=== PATIENT | female | born 1955 | race Caucasian/White ===

== ENCOUNTER 2020-03-07 09:47 | Outpatient (CLI) | payer OTHER, SELFPAY ==
--- NOTE | ~2020-03-07 | US_ITS ---
EXAMINATION: US right upper quadrant DATE: 03/07/2020 10:32 INDICATION: Jaundice. TECHNIQUE: Multiple grayscale and Doppler ultrasound images of the abdomen were obtained. COMPARISON: None FINDINGS: The pancreatic head and body are normal in appearance. The pancreatic tail is not visualized. Liver has normal contour, with a smooth surface. There is increased parenchymal echogenicity and coarsened echotexture consistent with diffuse hepatic steatosis. No liver lesion identified. No intrahepatic b iliary duct dilation suspected. Portal venous flow was seen in the hepatopetal, normal direction and has normal Doppler waveform. There is minimal wall thickening of the gallbladder which is partially d ecompressed. Small amount of dependently layering hypoechoic sludge in the gallbladder without discre te shadowing cholelithiasis. The common bile duct measures 3 mm diameter which is normal. Sonographic Ruiz sign was reported as negative by the allocations clerk.Visualized proximal inferior vena cava is no rmal. IMPRESSION: 1. Gallbladder sludge without shadowing cholelithiasis or sonographic Ruiz's to suggest acute shahbaz cystitis. The mild gallbladder wall thickening is due at least in part to the partially decompressed state although differential would include chronic cholecystitis or edema related to heart disease, li oseas disease or other generalized edema forming states. 2. Diffuse hepatic steatosis. Reviewed, dictated and finalized at location A. IMPRESSION: 1. Gallbladder sludge without shadowing cholelithiasis or sonographic Ruiz's to suggest acute cholecystitis. The mild gallbladder wall thickening is due at least in part to the partially decompressed state although differential would i nclude chronic cholecystitis or edema related to heart disease, liver disease o r other generalized edema forming states. 2. Diffuse hepatic steatosis.
[2020-03-07 12:59] LABS: Alanine Aminotransferase 50 U/L (4-35); Albumin Level 3.5 g/dL (3.5-5.1); Alkaline Phosphatase 444 U/L (38-126); Aspartate Amino Transferase 255 U/L (14-36); Bilirubin Direct 5.2 mg/dL (0-0.3); Bilirubin,Total 11.9 mg/dL (0.2-1.3)
[2020-03-07 13:22] LABS: Alanine Aminotransferase 49 U/L (4-35); Albumin Level 3.5 g/dL (3.5-5.1); Alkaline Phosphatase 444 U/L (38-126); Aspartate Amino Transferase 248 U/L (14-36); Bilirubin Direct 5.3 mg/dL (0-0.3); Bilirubin,Total 11.9 mg/dL (0.2-1.3)
[2020-03-07 13:56] LABS: Hepatitis B Surface Antigen Negative (Negative)
[2020-03-07 14:02] LABS: HAV RESULT Negative (Negative); Hepatitis B Core IgM Result Negative (Negative)
[2020-03-07 14:13] LABS: Hepatitis C Virus Antibody Negative (Negative)
[2020-03-08 20:32] LABS: GGT 839 U/L (3-65)
== END 2020-03-07 09:48 | disposition home or self-care (01) ==
PROVIDERS: PCP Family Medicine; Visit Provider Physician Assistant
DX: R74.8 Abnormal levels of other serum enzymes (principal); K76.0 Fatty (change of) liver, not elsewhere classified; R17 Unspecified jaundice
CPT/HCPCS: 36415; 76705; 80074; 80076; 82728; 82977

== ENCOUNTER 2020-03-13 08:37 | Inpatient (IN) | payer OTHER, SELFPAY ==
[2020-03-13] VITALS (13 sets, daily range): BP systolic 110–123; BP diastolic 52–75; PULSE 81–103; RESP 16–22; TEMP 36.1–37.2; O2SAT 91–100; BMI 22.9
--- NOTE | ~2020-03-13 | US_ITS ---
EXAMINATION: US venous doppler [facility] DATE: 03/14/2020 11:18 INDICATION: Bilateral lower limb swelling TECHNIQUE: Cantu scale images without and with compression and Doppler images of the bilateral lower e xtremity veins were obtained. COMPARISON: None FINDINGS: The right common femoral vein, profunda femoral vein, femoral vein, popliteal vein, peroneal trunk, p osterior tibial veins, and greater saphenous vein are patent. The left common femoral vein, profunda femoral vein, femoral vein, popliteal vein, peroneal trunk, po sterior tibial veins, and greater saphenous vein are patent. IMPRESSION: 1. Patent bilateral lower extremity veins. No evidence of deep venous thrombosis. Reviewed, dictated and finalized at location A. IMPRESSION: 1. Patent bilateral lower extremity veins. No evidence of deep venous thrombosi s.
--- NOTE | ~2020-03-13 | CT_ITS ---
EXAMINATION: CT abdomen pelvis w con DATE: 03/13/2020 09:45 INDICATION: Jaundice. Constipation. TECHNIQUE: Computed tomography (CT) of the abdomen and pelvis was performed with 100 mL Omnipaque 350 intravenous contrast. Automated exposure control and iterative reconstruction technique were employe d. The dose-length product was 310.39 mGy-cm. COMPARISON: Abdomen ultrasound 03/07/2020 FINDINGS: The visualized portions of the lung bases demonstrate minimal atelectasis. No pleural effus ion. The heart size is normal. No pericardial effusion. The liver is enlarged and demonstrates surfac e nodularity, consistent with cirrhosis. There is mild splenomegaly measuring 13.8 cm. Paraesophageal varices are noted. The gallbladder, pancreas, and right adrenal gland are normal. There is a 12 mm m ass in left adrenal gland measuring soft tissue attenuation. The kidneys are normal. There is diverti culosis of the colon without evidence of diverticulitis. There are no dilated loops of bowel. The apple endix is normal. There are no pathologically enlarged lymph nodes. There is a small volume of ascites . There is severe thoracic spondylosis and moderate lumbar spondylosis. IMPRESSION: 1. Cirrhosis of the liver with portal venous hypertension. 2. Small volume of ascites. 3. 12 mm left adrenal mass. In the absence of known malignancy, this finding is likely an adenoma. Reviewed, dictated and finalized at location A.
--- NOTE | 2020-03-13 08:53 | ED.GENADULT ---
HPI - General Adult General Chief complaint: Abdominal Pain Stated complaint: Jaundice Time Seen by Provider: 03/13/20 08:51 Source: patient Mode of arrival: ambulatory Limitations: no limitations History of Present Illness HPI narrative: Patient is a 64-year-old female who presents from gastroenterology office of Dr. Nehemiah Carolina for evaluation in the ER for jaundice and hyperbilirubinemia. Patient reports a 2-month history of worsening jaundice, constipation, patient has been unable to have a bowel movement and 5 days. She reports decreased oral intake due to lack of appetite. Patient reports mild, aching abdominal pain, mild distention. Patient denies itchy skin or rash. She denies nausea or vomiting. Patient reports general malaise without myalgias or fever. No cough, chest pain or shortness of breath. No unintended weight loss or fever, no night sweats. No history of cancer. Patient states she is a daily 4-5 drinks per nights over the past several years since the of her daughter. Patient states her alcohol intake is slightly increased of late, but there are nights that she does not drink anything. Patient denies history of alcohol withdrawal. No history of hepatitis. Pt with recent laboratory work up showing anemia, hyponatremia, transaminitis. Pt with RUQ US without evidence of obstructive process. Recent hepatitis panel negative. Related Data Home Medications Medication Instructions Recorded Confirmed alprazolam 0.25 mg tablet 0.25 mg PO TID 10/11/19 epinephrine 0.3 mg/0.3 mL 0.3 mg IM ONCE 10/11/19 injection, auto-injector lisinopril 10 mg tablet 10 mg PO DAILY 10/11/19 tramadol 50 mg tablet 50 mg PO Q8H PRN tablet 10/11/19 zolpidem 12.5 mg tablet,extended 12.5 mg PO ONCE 10/11/19 release,multiphase Allergies Allergy/AdvReac Type Severity Reaction Status Date / Time bee venom protein (honey bee) Allergy Anaphylactic Verified 03/13/20 08:55 [bees] Shock Review of Systems Review of Systems: Narrative: CONSTITUTIONAL: Denies fever, chills, or sweats. EYES: Denies visual changes, redness, or discharge. ENT: Denies rhinorrhea, congestion, sore throat, or otalgia. CARDIOVASCULAR: Denies chest pain, palpitations, or edema. RESPIRATORY: Denies cough or dyspnea. GASTROINTESTINAL: Reports abdominal pain, constipation GENITOURINARY: Denies dysuria or hematuria. SKIN: Denies rash or itching. MUSCULOSKELETAL: Denies back pain, joint pain, or myalgia. NEUROLOGIC: Denies headache, numbness, or weakness. [facility] Past Medical History Medical History Abdominal bloating Abdominal discomfort Alcoholic hepatitis Anemia Bowel habit changes Elevated bilirubin Elevated liver enzymes Hepatic steatosis Jaundice Macrocytic anemia Family History Family History Mother Patient's mother is Social History Social History Smoking status: Former smoker Smoking end date: 10/17/00 Alcohol intake: current Exam Narrative: Exam Narrative: GENERAL: Awake, alert, conversant, jaundiced HEAD: Normocephalic, atraumatic. EYES: PERRLA and EOMI. positive scleral icterus ENT: Nares clear, no rhinorrhea or epistaxis. Mucous membranes moist. NECK: Supple. CHEST: No respiratory distress, breathing even and non labored HEART: Regular rate, sinus rhythm ABDOMEN:Non distended, non tender on exam, no guarding, no rigidity EXTREMITIES: Normal range of motion. Pitting edema lower extremities bilaterally 2+ to the knees, no petechiae SKIN: Warm, dry, no rash. NEURO:No focal deficits. Alert and oriented x3. Ambulatory with a narrow base, steady gait. Course Vital Signs Vital signs: Vital Signs Temperature 36.9 C 03/13/20 08:37 Pulse Rate 100 03/13/20 08:37 Respiratory Rate 16 03/13/20 08:37 Blood Pressure 123/75 05
[2020-03-13 09:23] LABS: Basophils Absolute Auto 0.1 K/mm3 (0.0-0.1); Basophils Percent Auto 0.3 % (0.2-1.2); Eosinophils Absolute Auto 0.1 K/mm3 (0-0.3); Eosinophils Percent Auto 0.3 % (0-4.4); Hematocrit 25.9 % (37.0-47.0); Hemoglobin 9.3 g/dL (12.0-15.0); Immature Granulocyte Absolute 0.11 K/mm3 (0.00-0.031); Immature Granulocyte Percent A 0.8 % (0-0.5); Immature Platelet Fraction Pct 18.5 % (0.9-11.2); Lymphocytes Absolute Auto 0.86 K/mm3 (0.9-3.2); Mean Corpuscular HGB Conc 35.9 g/dl (32-36); Mean Corpuscular Hemoglobin 35.9 pg (26-34); Mean Platelet Volume 13.3 fl (7.4-10.4); Monocytes Absolute Auto 0.6 K/mm3 (0.1-0.6); Neutrophils Absolute Auto 12.7 K/mm3 (1.3-6.7); Neutrophils Percent Auto 88.6 % (45.5-73.1); Platelet Count Result 221 k/mm3 (150-375); Red Blood Count 2.59 M/mm3 (4.2-5.4); Red Cell Distribution Width 17.5 % (11.5-14.5); White Blood Count 14.4 K/mm3 (4.5-10.0)
[2020-03-13 09:28] LABS: Add Urine Microscopic? YES; Appearance Urine Clear (Clear); Bacteria Urine Trace /hpf; Bilirubin Urine 2+ (Negative); Blood Urine 1+ (Negative); Color Urine Amber (Yellow); Glucose Urine UA Negative (Negative); Hyaline Casts Urine 20-29 /lpf; Ketones Urine Trace mg/dL (Negative); Leukocyte Esterase Ur Trace LEU/UL (Negative); Mucus Urine Rare /lpf; Nitrate Urine Negative (Negative); Protein Urine Negative (Negative); RBC Urine 0-2 /hpf (0-2); Specific Grav Ur 1.012 (1.001-1.035); Squamous Epithelial Cell Urine Many /hpf (Few); Transitional Epi Cells Urine Rare /hpf (None Seen)
[2020-03-13 09:32] LABS: Ammonia 34 umol/L (9-30)
[2020-03-13 09:33] LABS: INR 1.6; Prothrombin Time 18.3 Seconds (11.1-14.7)
[2020-03-13 09:34] LABS: Partial Thromboplastin Time 39.1 SECONDS (22.3-36.8)
[2020-03-13 09:39] LABS: Alanine Aminotransferase 51 U/L (4-35); Albumin Level 3.5 g/dL (3.5-5.1); Alkaline Phosphatase 368 U/L (38-126); Aspartate Amino Transferase 190 U/L (14-36); Bilirubin,Total 14.5 mg/dL (0.2-1.3); Blood Urea Nitrogen 8 mg/dL (7-17); Carbon Dioxide 35 mmol/L (22-30); Chloride 68 mmol/L (98-107); Estimated CRCL calculation 115 ml/min; Estimated Glomerular Filt Rate > 60; Glucose 86 mg/dL (65-105); Lipase 212 U/L (23-300); Potassium 2.2 mmol/L (3.4-5.0); Sodium 118 mmol/L (137-145)
[2020-03-13 09:42] LABS: Estimated CRCL calculation 95 ml/min; Estimated Glomerular Filt Rate > 60
[2020-03-13] MEDS: SODIUM CHLORIDE 0.9% IV 1,000 ML 999 ML IV CONT (10:00)
[2020-03-13] MEDS: POTASSIUM CHLORIDE 20 MEQ PACKET (FOR LIQUID) 40 MEQ PO (10:57)
--- NOTE | 2020-03-13 12:08 | PC.NURSE ---
This patient, Crystal Mckinney, was admitted to IMU Room 206-01. Patient/family oriented to hospital policies and general routines including ID bracelet, bed and alarms, visiting hours, pain management, procedures, bathroom and other care routines, personal items, smoking policy, room service/diet, and visiting hours. Valuables list has been completed. Information on how to activate the Rapid Response Team has been discussed. Patient/Family are encouraged to report perceived risks to care and to ask questions if they do not understand what they are told or what they should do.
[2020-03-13] MEDS: SODIUM CHLORIDE 0.9% IV 1,000 ML 125 ML IV CONT (12:22)
[2020-03-13 16:18] LABS: Blood Urea Nitrogen 6 mg/dL (7-17); Calcium 6.8 mg/dL (8.4-10.2); Carbon Dioxide 37 mmol/L (22-30); Chloride 75 mmol/L (98-107); Estimated CRCL calculation 152 ml/min; Estimated Glomerular Filt Rate > 60; Glucose 96 mg/dL (65-105); Magnesium 1.2 mg/dL (1.6-2.3); Potassium 2.8 mmol/L (3.4-5.0); Sodium 119 mmol/L (137-145)
[2020-03-13] MEDS: PANTOPRAZOLE SODIUM IV 40 MG VIAL IV PUSH (16:40)
[2020-03-13 16:56] LABS: Iron 60 ug/dL (37-170)
[2020-03-13 17:06] LABS: Percent Iron Saturation 28 % (20-50)
[2020-03-13] MEDS: POTASSIUM PHOS,M-BASIC-D-BASIC 20 MMOL in SODIUM CHLORIDE 0.9% IV 250 ML 64 MMOL IVPB (17:30)
[2020-03-13] MEDS: MAGNESIUM SULFATE 3GM/D5W100ML 3 GM/100 ML BAG IVPB (17:30)
[2020-03-13 17:36] LABS: Folic Acid 14.4 ng/mL (2.76->20); Vitamin B12 > 1000.0 pg/mL (239-931)
[2020-03-13 17:58] LABS: Creatinine Urine 14.8 mg/dL
[2020-03-13 18:03] LABS: Sodium Urine Random 8 meq/L
--- NOTE | 2020-03-13 18:45 | PM.IMHP ---
H&P: HPI History of Present Illness Chief complaint: Elevated transaminases and jaundice. Narrative: Crystal Mckinney is a 64-year-old female with history of alcohol abuse, cirrhosis, hepatic steatosis, and anemia who presented to the emergency department earlier today per Dr. Bush for further evaluation of elevated transaminases and jaundice. She has been drinking daily for nearly 7 years since the of her daughter at age 36 due to complications of diabetes and typically she will drinks 6 shots of Tequila a day followed by a chaser. She has never had signs or symptoms of alcohol withdrawal should she miss a day or 2 of drinking. In any event, she tells me she has not been feeling well since the beginning of the year with multiple symptoms to include poor appetite, abdominal bloating, and constipation. She was initially referred to Dr. Bush for evaluation of dark stools and constipation, however her endoscopy was canceled due to the COVID outbreak. More recently, she has developed jaundice and scleral icterus and she has not been able to hold down much in the way of liquids or food. Most days she drinks tea and chicken broth, and not much else. She was seen by Dr. Bush today in the office, and due to increasing enzymes she was referred to the emergency department for admission. She is currently receiving multiple electrolyte replacements due to profound hyponatremia, hypokalemia, hypomagnesemia, and hypophosphatemia. She has been taking furosemide at home, but is not using any other diuretics, prescribed or [id number]. She does admit to taking laxatives due to concerns for constipation, but she has not had much output with that. She denies overt abdominal pain but does report bloating and distention. She has lost some weight since the beginning of the year, but nothing significant. She has a mild dry cough but denies shortness of breath. She has not had fever, chills, or sweats. No sinus congestion, rhinorrhea, otalgia, or odynophagia. She denies chest pain. No hematemesis, melena, or hematochezia. She has not noticed a change in urine output, but does report having to urinate every 30 to 60 minutes since she has been hospitalized due to IV fluid rehydration. Last drink was yesterday afternoon. Review of Systems Review of Systems: Narrative: Twelve systems were reviewed with pertinent positives and negatives as per HPI. No headache. She denies confusion. She denies rash and pruritus. No chest pain or shortness of breath. She denies palpitations and racing heart. No dysuria or hematuria. She does not think she has had a good bowel movement for months, and reports passing a small hard stool bout 5 days ago. She frequently has pedal edema at the end of her work shifts, but notes that it has been constant for the past 1 week. It is not unusual for her right foot to be more swollen when compared to the left due to an ankle fracture at the age of 23. She has no history of venous thromboembolism. Except as documented, all other systems were reviewed and are negative. [facility] Past Medical History Medical History (Updated 03/13/20 @ 15:54 by Nayely Evans PA-C) Alcohol abuse Alcoholic hepatitis Anxiety and depression Chronic anemia Essential hypertension Gastroesophageal reflux Hepatic steatosis Surgical History Surgical History (Updated 03/13/20 @ 21:36 by Nayely Evans PA-C) History of ankle surgery Repair of right ankle fracture with subsequent hardware removal. History of hysterectomy History of tubal ligation Family History Family History Mother Patient's mother is Social History Social History (Updated 03/13/20 @ 21:38 by Nayely Evans PA-C) Social History: The patient lives in [place] with her . They have 2 children, but her daughter from complications of diabetes at age 36. She s
[2020-03-13 19:10] LABS: Magnesium 2.2 mg/dL (1.6-2.3)
[2020-03-13 19:16] LABS: Sodium 117 mmol/L (137-145)
[2020-03-13 22:13] LABS: Sodium 118 mmol/L (137-145)
[2020-03-13] MEDS: SODIUM CHLORIDE 0.9% IV 1,000 ML 100 ML IV CONT (23:03)
[2020-03-13] MEDS: THIAMINE HCL 200 MG/2 ML VIAL 100 MG IV PUSH (23:37)
[2020-03-14] VITALS (12 sets, daily range): BP systolic 106–118; BP diastolic 46–57; PULSE 77–96; RESP 12–18; TEMP 36.1–37.1; O2SAT 92–97
[2020-03-14 01:19] LABS: Phosphorus 1.6 mg/dL (2.5-4.5); Potassium 2.4 mmol/L (3.4-5.0); Sodium 120 mmol/L (137-145)
[2020-03-14] MEDS: POTASSIUM CHLORIDE 20 MEQ TABLET 80 MEQ PO (02:07)
[2020-03-14] MEDS: POTASSIUM PHOS,M-BASIC-D-BASIC 20 MMOL in SODIUM CHLORIDE 0.9% IV 250 ML 62.5 MMOL IVPB (02:07)
[2020-03-14 04:00] LABS: Hematocrit 23.5 % (37.0-47.0); Hemoglobin 8.1 g/dL (12.0-15.0); Mean Corpuscular HGB Conc 34.5 g/dl (32-36); Mean Corpuscular Hemoglobin 35.7 pg (26-34); Mean Corpuscular Volume 103.5 fl (80-100); Mean Platelet Volume 12.7 fl (7.4-10.4); Platelet Count Result 156 k/mm3 (150-375); Red Blood Count 2.27 M/mm3 (4.2-5.4); White Blood Count 9.2 K/mm3 (4.5-10.0)
[2020-03-14 04:14] LABS: Alanine Aminotransferase 44 U/L (4-35); Albumin Level 2.9 g/dL (3.5-5.1); Alkaline Phosphatase 297 U/L (38-126); Aspartate Amino Transferase 179 U/L (14-36); Bilirubin,Total 12.6 mg/dL (0.2-1.3); Blood Urea Nitrogen 2 mg/dL (7-17); Calcium 6.9 mg/dL (8.4-10.2); Carbon Dioxide 35 mmol/L (22-30); Chloride 80 mmol/L (98-107); Estimated CRCL calculation 152 ml/min; Estimated Glomerular Filt Rate > 60; Glucose 96 mg/dL (65-105); INR 1.7; Magnesium 2.1 mg/dL (1.6-2.3); Phosphorus 1.5 mg/dL (2.5-4.5); Prothrombin Time 19.6 Seconds (11.1-14.7); Sodium 122 mmol/L (137-145)
[2020-03-14 04:15] LABS: Partial Thromboplastin Time 43.5 SECONDS (22.3-36.8)
[2020-03-14 07:17] LABS: Sodium 124 mmol/L (137-145)
[2020-03-14 07:20] LABS: Phosphorus 2.3 mg/dL (2.5-4.5); Potassium 3.6 mmol/L (3.4-5.0)
[2020-03-14] MEDS: SODIUM CHLORIDE 0.9% IV 1,000 ML 100 ML IV CONT ×2 (09:34→19:58)
[2020-03-14] MEDS: THIAMINE HCL 100 MG TABLET PO (09:35)
[2020-03-14] MEDS: FOLIC ACID 1 MG TABLET PO (09:35)
[2020-03-14] MEDS: PANTOPRAZOLE SOD SESQUIHYDRATE 20 MG TAB PO (09:35)
[2020-03-14] MEDS: THERAPEUTIC MULTIVITAMINS/MINERALS TAB (*BKC) 1 TABLET PO (09:35)
[2020-03-14 10:39] LABS: Sodium 124 mmol/L (137-145)
[2020-03-14 13:27] LABS: Sodium 124 mmol/L (137-145)
--- NOTE | 2020-03-14 14:02 | PM.IMPN ---
Progress Note: A&P Assessment and Plan (1) Acute hyponatremia: Code(s): E87.1 - Hypo-osmolality and hyponatremia Status: Acute Assessment and Plan: Likely multifactorial in etiology to include poor oral intake, potomania (due to alcohol abuse and tea and toast diet), and liver disease. At presentation, sodium was 118. It has increased to 124 and remained stable. FeNa is 0.14%, suggesting pre-renal etiology. Continue IV normal saline Continue to monitor sodium levels q.3 hours to ensure it is correcting at an appropriate rate. Sodium has increased by 6 points in 24 hours and appears to be remaining stable (2) Acute hypokalemia: Code(s): E87.6 - Hypokalemia Status: Acute Assessment and Plan: Potassium critically low at presentation at 2.2. Today, K is stable at 3.6. Potassium will be monitored and replaced as needed. (3) Hypophosphatemia: Code(s): E83.39 - Other disorders of phosphorus metabolism Status: Acute Assessment and Plan: Phosphate is 2.3 today. Administer 1 time dose of potassium phosphate Continue to monitor levels (4) Alcoholic hepatitis: Qualifiers: Ascites presence: without ascites Qualified Code(s): K70.10 - Alcoholic hepatitis without ascites Code(s): K70.10 - Alcoholic hepatitis without ascites Status: Acute Assessment and Plan: She drinks alcohol daily and has for years. Liver enzymes are elevated with AST>ALT 4:1. She has recently established with gastroenterology. Continue supportive care. Cessation of alcohol use will be pertinent Continue thiamine supplementation (5) Chronic anemia: Code(s): D64.9 - Anemia, unspecified Status: Acute Assessment and Plan: Iron studies, B12, and folate all within normal limits. This appears to be chronic based on review of prior labs. Today, hemoglobin is 8.1 and hematocrit is 23.5. Continue to monitor H&H and transfuse as needed IFOB has been ordered but uncollected as patient has not had a bowel movement. (6) Cirrhosis: Code(s): K74.60 - Unspecified cirrhosis of liver Status: Acute Assessment and Plan: Evident on CT taken 03/13/2020 with portal hypertension and paraesophageal varices noted. Presumably secondary to alcohol abuse. Her coagulation panel is prolonged, platelets are within normal limits, total protein and albumin are low. Liver enzymes are elevated with AST>ALT 4:1. She is edematous on exam. Dr. Bush has been consulted and input is appreciated. Plan to diurese once IV fluids can be discontinued (7) Jaundice: Code(s): R17 - Unspecified jaundice Status: Acute Assessment and Plan: She is jaundiced and has scleral icterus. Recent RUQ performed as an outpatient showed gallbladder sludge and hepatic steatosis. Bilirubin is elevated at 12.6. Hopefully this will improve with cessation of alcohol and supportive care. (8) Alcohol abuse: Code(s): F10.10 - Alcohol abuse, uncomplicated Status: Acute Assessment and Plan: She drinks about 6 shots of tequila per day and has done so for years. Abstaining from alcohol is imperative and was discussed. No evidence of alcohol withdrawal symptoms. Continue thiamine and folic acid supplementation. Continue CIWA protocol. Additional Plan Plan to downgrade from IMU to medical floor as electrolytes have stabilized. Subjective Date/time seen: 03/14/20 14:02 Interval history: Date of service: 03/14/2020 Ms. Mckinney reports she is feeling very tired today. She is on the phone during my visit and is distracted and does not wish to talk or answer questions. She denies shortness of breath or chest pain. She denies abdominal pain, nausea, vomiting, or diarrhea. She does not have any other concerns at this time. Review of Systems Review of Systems: Narrative: A 12 point review of syst
[2020-03-14 16:23] LABS: Sodium 124 mmol/L (137-145)
[2020-03-14] MEDS: POTASSIUM PHOS/SODIUM PHOS 250 MG TABLET PO (17:30)
--- NOTE | 2020-03-14 18:16 | PC.NURSE ---
This patient, Crystal Mckinney, was received from IMU on 03/14/20 at 1800. Personal belongings list checked and signed. Patient/family oriented to unit policies and routines
--- NOTE | 2020-03-14 18:17 | PC.NURSE ---
This patient, Crystal Mckinney, was transferred to [[id number]] on 03/14/20 at 1810. Personal belongings sent with patient. Belongings list checked and signed with receiving [ ]. Report given to [IRIS Hope @ [phone]]. Appropriate documentation sent with patient. Pt transferred viz wheelchair
--- NOTE | 2020-03-14 18:51 | WPDGICN ---
Assessment and Plan Assessment and plan (1) Alcoholic hepatitis: Qualifiers: Ascites presence: without ascites Qualified Code(s): K70.10 - Alcoholic hepatitis without ascites Code(s): K70.10 - Alcoholic hepatitis without ascites Status: Acute Assessment and Plan: she has cirrhosis and here with alcoholic hepatitis continue with supportive care, on thiamine/mvi, nutritional support Maddrey score 44, will start trental for now but hold if she does not tolerate she is also high risk of refeeding syndrome- monitor lytes (phos, k, mag) and replete eventually she will benefit from a liver transplant evaluation if she can be abstinent (2) Macrocytic anemia: Code(s): D53.9 - Nutritional anemia, unspecified Status: Acute Assessment and Plan: multifactorial, probably from alcohol abuse with cirrhosis eventually will need egd to assess for EV and portal hypertension and colonoscopy- most likely as outpatient (3) Acute hyponatremia: Code(s): E87.1 - Hypo-osmolality and hyponatremia Status: Acute Assessment and Plan: monitor (4) Acute hypokalemia: Code(s): E87.6 - Hypokalemia Status: Acute Assessment and Plan: repleted (5) Cirrhosis: Qualifiers: Hepatic cirrhosis type: alcoholic cirrhosis Ascites presence: unspecified Qualified Code(s): K70.30 - Alcoholic cirrhosis of liver without ascites Code(s): K74.60 - Unspecified cirrhosis of liver Status: Acute Assessment and Plan: most likely alcohol, hepatitis panel negative will check for other chornic liver conditions new diagnosis (6) Hypophosphatemia: Code(s): E83.39 - Other disorders of phosphorus metabolism Status: Acute Assessment and Plan: monitor and replete, risk for refeeding syndrome (7) Bowel habit changes: Code(s): R19.4 - Change in bowel habit Status: Acute Assessment and Plan: will give lactulose, eventually will need colonoscopy as outpatient when acute issues improve/hepatitis improve CT a/p reviewed, no colon mass (8) Abdominal bloating: Code(s): R14.0 - Abdominal distension (gaseous) Status: Acute (9) Alcohol abuse: Code(s): F10.10 - Alcohol abuse, uncomplicated Status: Acute Assessment and Plan: thiamine, nutrition support [facility] GI Consult Note Consult date/time: 05/29/20 18:51 Reason for consult: cirrhosis, jaundice HPI: Crystal Mckinney is a 64 year old female who I met yesterday for the first time in my office after she was referred to me with icteric sclerae and dark urine for almost 2 weeks but she has been feeling sick since November when first noted change in bowel pattern with more difficulty having stools, she wanted to get a colonoscopy but unable to because COVID19 situation. Recent blood work by her PCP showed abnormal liver enzymes with jaundice, macrocytic anemia, hyponatremia and hypokalemia. When I talked to her yesterday she says taht has not been eating much for last few days, lack of appetite, fatigue and bloated. I decided to send her to ER, CT scan revealed cirrhosis, she had worsening hyponatremia, hypokalemia and was admitted to the hospital. She still has not had a good bowel movement. She had lunch today. She admits to drink 5-6 shots of tequila daily for last few years, never diagnosed with liver disease before. Review of Systems Constitutional: Constitutional: Reports fatigue, Denies headache(s) and Reports lethargy Eyes: Eyes: Denies blurry vision ENT: Reports Normal hearing present, Denies headache(s) and Denies neck pain Cardiovascular: Cardiovascular: Denies chest pain and Denies dyspnea Respiratory: Respiratory: Denies dyspnea Gastrointestinal: Gastrointestinal: Reports bloating, Reports constipation and Reports nausea Genitourinary: Genitourinary: Denies dysuria Musculoskeletal: Musculoskeletal: Denies neck pain Integumentary/Breas
[2020-03-14 23:11] LABS: Potassium 3.1 mmol/L (3.4-5.0); Sodium 124 mmol/L (137-145)
[2020-03-15] MEDS: POTASSIUM CHLORIDE 20 MEQ TABLET 40 MEQ PO (02:20)
[2020-03-15 06:00] VITALS: BP 114/64; PULSE 81; RESP 16; TEMP 36.8; O2SAT 96
[2020-03-15] MEDS: SODIUM CHLORIDE 0.9% IV 1,000 ML 100 ML IV CONT (06:35)
[2020-03-15 07:47] LABS: Basophils Absolute Auto 0.1 K/mm3 (0.0-0.1); Basophils Percent Auto 0.6 % (0.2-1.2); Eosinophils Absolute Auto 0.1 K/mm3 (0-0.3); Eosinophils Percent Auto 0.9 % (0-4.4); Hematocrit 21.8 % (37.0-47.0); Hemoglobin 7.4 g/dL (12.0-15.0); Immature Granulocyte Absolute 0.08 K/mm3 (0.00-0.031); Immature Granulocyte Percent A 0.9 % (0-0.5); Immature Platelet Fraction Pct 12.5 % (0.9-11.2); Lymphocytes Absolute Auto 0.74 K/mm3 (0.9-3.2); Lymphocytes Percent Auto 8.5 % (18.3-44.2); Mean Corpuscular HGB Conc 33.9 g/dl (32-36); Mean Corpuscular Hemoglobin 36.3 pg (26-34); Mean Corpuscular Volume 106.9 fl (80-100); Mean Platelet Volume 13.2 fl (7.4-10.4); Monocytes Absolute Auto 0.4 K/mm3 (0.1-0.6); Monocytes Percent Auto 4.7 % (2.6-8.5); Neutrophils Absolute Auto 7.3 K/mm3 (1.3-6.7); Neutrophils Percent Auto 84.4 % (45.5-73.1); Platelet Count Result 158 k/mm3 (150-375); Red Blood Count 2.04 M/mm3 (4.2-5.4); Red Cell Distribution Width 18.9 % (11.5-14.5); White Blood Count 8.7 K/mm3 (4.5-10.0)
[2020-03-15 07:48] LABS: INR 1.8; Prothrombin Time 20.8 Seconds (11.1-14.7)
[2020-03-15 07:50] LABS: Magnesium 1.9 mg/dL (1.6-2.3)
[2020-03-15 08:28] LABS: Alanine Aminotransferase 44 U/L (4-35); Albumin Level 2.5 g/dL (3.5-5.1); Alkaline Phosphatase 273 U/L (38-126); Aspartate Amino Transferase 180 U/L (14-36); Bilirubin,Total 12.4 mg/dL (0.2-1.3); Blood Urea Nitrogen 3 mg/dL (7-17); Calcium 7.1 mg/dL (8.4-10.2); Carbon Dioxide 29 mmol/L (22-30); Chloride 95 mmol/L (98-107); Estimated CRCL calculation 152 ml/min; Estimated Glomerular Filt Rate > 60; Glucose 101 mg/dL (65-105); Phosphorus 1.3 mg/dL (2.5-4.5); Potassium 3.3 mmol/L (3.4-5.0); Sodium 129 mmol/L (137-145)
[2020-03-15] MEDS: PANTOPRAZOLE SOD SESQUIHYDRATE 20 MG TAB PO (09:22)
[2020-03-15] MEDS: LACTULOSE 20 GM/30 ML UDC PO (09:22)
[2020-03-15] MEDS: THERAPEUTIC MULTIVITAMINS/MINERALS TAB (*BKC) 1 TABLET PO (09:22)
[2020-03-15] MEDS: PENTOXIFYLLINE 400 MG TABCR PO ×3 (09:22→18:04)
[2020-03-15] MEDS: FOLIC ACID 1 MG TABLET PO (09:22)
[2020-03-15] MEDS: THIAMINE HCL 100 MG TABLET PO (09:22)
--- NOTE | 2020-03-15 09:54 | WPDGIPROGNO ---
Progress Note: A&P Additional Plan GI Jose Martin vladislav Cerna 03-15-2020 No abdominal pain, nausea, vomiting. Only small BM today. [place] po vss soft/NT No asterixis Hct 22, MCV 107. INR 1.8. Tbili 12, A/P 273, ast 180, alt 44. B12 > 1,000. Folate 14. Ferritin 216. Fe 60, tibc 214, %sat 28 A/P A. Alcoholic cirrhosis without ascites: - Lab evaluation ordered - Will need EtoH cessation - Will need EGD to evaluate for varices - Fat soluble vitamin levels and Bone densitometry as OP - No evidence of encephalopathy B. Alcoholic hepatitis with abnormal LFT's: - Observe for S/sx of withdrawal - Consider EtoH rehab - Continue Trental - Observe C. Macrocytosis: - B12/folate normal - Secondary to EtOH D. Chronic blood loss anemia: - No active bleed - Follow H+H; transfuse prn - PPI - Endoscopy per Dr. Cerna - CAre with aspirin, NSAIDS and anticoagulants E. Constipation: bowel regimen Thanks, [facility] [phone] Subjective Date/time seen: 03/15/20 09:54 Objective Data Vital Signs Vital Signs: Vital Signs - 24 hr 03/14/20 10:00 03/14/20 12:00 03/14/20 16:00 Temperature 36.8 C 36.1 C L Pulse Rate 86 89 95 Pulse Rate [Bilateral Pedal (Dorsalis Pedis) Palpation] 86 86 Respiratory Rate 12 12 Blood Pressure 116/46 L 118/49 L Pulse Oximetry 97 95 03/14/20 18:00 03/14/20 22:00 03/15/20 06:00 Temperature 36.7 C 37.1 C 36.8 C Pulse Rate 96 86 81 Pulse Rate [Bilateral Pedal (Dorsalis Pedis) Palpation] Respiratory Rate 18 16 16 Blood Pressure 116/57 L 106/52 L 114/64 Pulse Oximetry 92 97 96 Intake/Output Intake/Output: Intake & Output 03/12/20 03/13/20 03/14/20 03/15/20 23:59 23:59 23:59 23:59 Intake Total 3244.6667 3730 1300 Output Total 300 1800 600 Balance 2944.6667 1930 700 Meds/Results Medications: Active Medications Generic Name Dose Route Start Last Admin Trade Name Freq PRN Reason Stop Dose Admin Alprazolam 0.25 mg 03/13/20 21:49 Xanax PO TID PRN Anxiety Folic Acid 1 mg 03/14/20 09:00 03/15/20 09:22 Folic Acid PO 1 mg DAILY MICAELA Administration Potassium Phosphate 20 mmol/ 256.6667 mls @ 62.5 mls/hr 03/15/20 09:19 Sodium Chloride IVPB 03/15/20 13:25 ONCE ONE Lactulose 20 gm 03/15/20 09:00 03/15/20 09:22 Lactulose PO 20 gm QAM [facility] Administration Lorazepam 1 mg 03/13/20 21:48 Ativan Inj IV PUSH Q2H PRN Alcohol withdrawal & CIWA > 8 Multivitamins/Calcium 1 tablet 03/14/20 09:00 03/15/20 09:22 Therapeutic Multivitamins/Minerals PO 1 tablet QAM [facility] Administration Ondansetron HCl 4 mg 03/13/20 10:32 Zofran Inj IV PUSH Q4H PRN Nausea Pantoprazole Sodium 20 mg 03/14/20 09:00 03/15/20 09:22 Protonix PO 20 mg QAM [facility] Administration Pentoxifylline 400 mg 03/15/20 08:00 03/15/20 09:22 Trental PO 400 mg TIDWM [facility] Administration Thiamine HCl 100 mg 03/14/20 09:00 03/15/20 09:22 Vitamin B-1 PO 100 mg QAM [facility] Administration Tramadol HCl 25 mg 03/13/20 16:00 03/13/20 16:49 Ultram PO 25 mg Q8H PRN Administration Pain Rated 4-6 Radiology Results: ITS Impressions Abdomen/Pelvis CT 03/13/20 09:49 IMPRESSION: 1. Cirrhosis of the liver with portal venous hypertension. 2. Small volume of ascites. 3. 12 mm left adrenal mass. In the absence of known malignancy, this finding is likely an adenoma. Venous Doppler Study 03/14/20 11:20 IMPRESSION: 1. Patent bilateral lower extremity veins. No evidence of deep venous thrombosis. Labs Labs: Laboratory Results - last 24 hr 03/14/20 03/14/20 03/14/20 10:10 13:12 16:09 WBC RBC Hgb Hct MCV MCH MCHC RDW Plt Count MPV Immature Gran % (Auto) Neut % (Auto) Lymph % (Auto) [place] % (Auto) Eos % (Auto) Baso % (Auto) Lymph # (Auto) [place] # (Auto) Eos # (Auto) Baso # (Auto) Abs Immat Gran (auto) Absolute Neuts (
[2020-03-15 10:00] VITALS: BP 140/67; PULSE 78; RESP 16; TEMP 36.7; O2SAT 98
[2020-03-15] MEDS: POTASSIUM PHOS,M-BASIC-D-BASIC 20 MMOL in SODIUM CHLORIDE 0.9% IV 250 ML 62.5 MMOL IVPB ×2 (10:14→18:05)
[2020-03-15 10:39] LABS: Sodium 127 mmol/L (137-145)
[2020-03-15] MEDS: BISACODYL 5 MG TABLET EC PO (13:06)
[2020-03-15 14:00] VITALS: BP 116/50; PULSE 97; RESP 18; TEMP 36.7; O2SAT 100
[2020-03-15 15:49] LABS: Potassium 3.3 mmol/L (3.4-5.0)
[2020-03-15 15:50] LABS: Sodium 127 mmol/L (137-145)
[2020-03-15 15:53] LABS: Phosphorus 1.7 mg/dL (2.5-4.5)
--- NOTE | 2020-03-15 16:50 | PM.IMPN ---
Progress Note: A&P Assessment and Plan (1) Acute hyponatremia: Code(s): E87.1 - Hypo-osmolality and hyponatremia Status: Acute Assessment and Plan: Likely multifactorial in etiology to include poor oral intake, potomania (due to alcohol abuse and tea and toast diet), and liver disease. FeNa is 0.14%, suggesting pre-renal etiology.At presentation, sodium was 118. Levels increased 6 points in 24 hours and 10 points in 48 hours. This morning, sodium was 129, and therefore fluids were discontinued to prevent rapid correction. Levels have remained stable at 127 on repeat. Discontinue IV normal saline. Plan to resume if levels begin to decline. Continue to monitor sodium levels Q6 hours to ensure it is correcting at an appropriate rate. (2) Acute hypokalemia: Code(s): E87.6 - Hypokalemia Status: Acute Assessment and Plan: Potassium critically low at presentation at 2.2. Today, K is mildly decreased at 3.3. Potassium will be monitored closely and replaced as needed. Continue potassium phosphate. (3) Hypophosphatemia: Code(s): E83.39 - Other disorders of phosphorus metabolism Status: Acute Assessment and Plan: Phosphorus was 1.3 this morning. Administer 20 mmol IV potassium phosphate. Levels increased to 1.7 upon repeat and therefore will administer an additional 20 mmol. Continue to monitor levels closely (4) Cirrhosis: Qualifiers: Ascites presence: unspecified Hepatic cirrhosis type: alcoholic cirrhosis Qualified Code(s): K70.30 - Alcoholic cirrhosis of liver without ascites Code(s): K74.60 - Unspecified cirrhosis of liver Status: Acute Assessment and Plan: Evident on CT taken 03/13/2020 with portal hypertension and paraesophageal varices noted. Presumably secondary to alcohol abuse. Her coagulation panel is prolonged, platelets are within normal limits, total protein and albumin are low. Liver enzymes are elevated with AST>ALT 4:1. She is edematous on exam. Gastroenterology has been consulted and input is appreciated. Lab workup is pending Begin Lasix PO 20 mg She will need outpatient EGD to assess for varices. She will also need to evaluate fat soluble vitamin levels and bone densitometry per GI recommendations. Cessation of alcohol use is imperative (5) Alcoholic hepatitis: Qualifiers: Ascites presence: without ascites Qualified Code(s): K70.10 - Alcoholic hepatitis without ascites Code(s): K70.10 - Alcoholic hepatitis without ascites Status: Acute Assessment and Plan: She drinks alcohol daily and has for years. Liver enzymes are elevated with AST>ALT 4:1. She has recently established with gastroenterology. There is no evidence of abdominal ascites or encephalopathy. Continue supportive care. Cessation of alcohol use will be pertinent Continue thiamine supplementation Gastroenterology has been consulted and lab evaluation is pending. (6) Chronic anemia: Code(s): D64.9 - Anemia, unspecified Status: Acute Assessment and Plan: Macrocytic. Iron studies, B12, and folate all within normal limits. This appears to be chronic based on review of prior labs. Today, hemoglobin is 7.4 and hematocrit is 21.8. Her vitals are stable and she is asymptomatic. Continue to monitor H&H closely and transfuse as needed with hemoglobin threshold <7.0 IFOB has been ordered but uncollected as patient has been uncooperative with stool collection. Continue PPI (7) Alcohol abuse: Code(s): F10.10 - Alcohol abuse, uncomplicated Status: Acute Assessment and Plan: She drinks about 6 shots of tequila per day and has done so for years. Abstaining from alcohol is imperative and was discussed. No evidence of alcohol withdrawal symptoms on exam. Continue thiamine and folic acid supplementation. Continue CIWA protocol. Patient states that she has never
[2020-03-15 22:00] VITALS: BP 110/47; PULSE 81; RESP 16; TEMP 36.8; O2SAT 97
[2020-03-15 22:31] LABS: Hematocrit 23.2 % (37.0-47.0); Hemoglobin 7.9 g/dL (12.0-15.0)
[2020-03-15 22:40] LABS: Sodium 127 mmol/L (137-145)
[2020-03-15 22:43] LABS: Phosphorus 2.6 mg/dL (2.5-4.5); Potassium 3.9 mmol/L (3.4-5.0)
[2020-03-16 06:39] VITALS: BP 103/54; PULSE 80; RESP 18; TEMP 36.8; O2SAT 100
[2020-03-16 06:41] LABS: Basophils Percent Auto 0.4 % (0.2-1.2); Eosinophils Absolute Auto 0.1 K/mm3 (0-0.3); Eosinophils Percent Auto 0.5 % (0-4.4); Hematocrit 23.8 % (37.0-47.0); Immature Granulocyte Absolute 0.12 K/mm3 (0.00-0.031); Immature Granulocyte Percent A 1.1 % (0-0.5); Lymphocytes Absolute Auto 0.92 K/mm3 (0.9-3.2); Lymphocytes Percent Auto 8.7 % (18.3-44.2); Mean Corpuscular HGB Conc 33.6 g/dl (32-36); Mean Corpuscular Hemoglobin 35.4 pg (26-34); Mean Corpuscular Volume 105.3 fl (80-100); Mean Platelet Volume 12.9 fl (7.4-10.4); Monocytes Absolute Auto 0.5 K/mm3 (0.1-0.6); Monocytes Percent Auto 4.7 % (2.6-8.5); Neutrophils Absolute Auto 8.9 K/mm3 (1.3-6.7); Neutrophils Percent Auto 84.6 % (45.5-73.1); Platelet Count Result 197 k/mm3 (150-375); Red Blood Count 2.26 M/mm3 (4.2-5.4); Red Cell Distribution Width 18.8 % (11.5-14.5); White Blood Count 10.5 K/mm3 (4.5-10.0)
[2020-03-16 06:48] LABS: INR 1.7; Prothrombin Time 19.7 Seconds (11.1-14.7)
[2020-03-16 06:55] LABS: Alanine Aminotransferase 46 U/L (4-35); Albumin Level 2.9 g/dL (3.5-5.1); Alkaline Phosphatase 287 U/L (38-126); Aspartate Amino Transferase 155 U/L (14-36); Bilirubin,Total 12.7 mg/dL (0.2-1.3); Blood Urea Nitrogen 5 mg/dL (7-17); Calcium 7.9 mg/dL (8.4-10.2); Carbon Dioxide 26 mmol/L (22-30); Chloride 97 mmol/L (98-107); Estimated CRCL calculation 152 ml/min; Estimated Glomerular Filt Rate > 60; Glucose 96 mg/dL (65-105); Phosphorus 2.1 mg/dL (2.5-4.5); Potassium 3.7 mmol/L (3.4-5.0); Sodium 131 mmol/L (137-145)
[2020-03-16] MEDS: FUROSEMIDE 20 MG TABLET PO (09:13)
[2020-03-16] MEDS: PENTOXIFYLLINE 400 MG TABCR PO (09:13)
[2020-03-16] MEDS: THIAMINE HCL 100 MG TABLET PO (09:13)
[2020-03-16] MEDS: THERAPEUTIC MULTIVITAMINS/MINERALS TAB (*BKC) 1 TABLET PO (09:13)
[2020-03-16] MEDS: PANTOPRAZOLE SOD SESQUIHYDRATE 20 MG TAB PO (09:13)
[2020-03-16] MEDS: FOLIC ACID 1 MG TABLET PO (09:13)
[2020-03-16] MEDS: POTASSIUM PHOS,M-BASIC-D-BASIC 20 MMOL in SODIUM CHLORIDE 0.9% IV 250 ML 62.5 MMOL IVPB (09:47)
--- NOTE | 2020-03-16 11:37 | PM.DS ---
DS: Admitting Diagnosis Admitting Diagnosis Admitting Diagnosis: Hypo-osmolality and hyponatremia DS: Discharge Diagnosis Discharge Diagnosis (1) Cirrhosis: Qualifiers: Ascites presence: unspecified Hepatic cirrhosis type: alcoholic cirrhosis Qualified Code(s): K70.30 - Alcoholic cirrhosis of liver without ascites Code(s): K74.60 - Unspecified cirrhosis of liver Status: Acute Assessment and Plan: Evident on CT taken 03/13/2020 with portal hypertension and paraesophageal varices noted. Presumably secondary to alcohol abuse. Liver enzymes were elevated with AST>ALT 4:1. Gastroenterology followed patient during stay. Lab work was pending at time of discharge and she will follow up with Dr. Cerna in 1-2 weeks to review. She will continue 20 mg PO Lasix daily. She will need outpatient EGD to assess for varices. She will also need to evaluate fat soluble vitamin levels and bone densitometry as an outpatient per GI recommendations. Cessation of alcohol use is imperative and patient is motivated to stop drinking. (2) Acute hyponatremia: Code(s): E87.1 - Hypo-osmolality and hyponatremia Status: Acute Assessment and Plan: Likely multifactorial in etiology secondary to poor oral intake, potomania (due to alcohol abuse and tea and toast diet), and liver disease. At presentation, sodium was 118, and was monitored closely to prevent rapid correction. Sodium levels increased at an appropriate rate and at time of discharge, sodium was 131. She will obtain repeat BMP in ~1 week. (3) Acute hypokalemia: Code(s): E87.6 - Hypokalemia Status: Acute Assessment and Plan: Potassium was low at presentation at 2.2. Levels increased with IV potassium replacement. At time of discharge, potassium was 3.7. She will obtain repeat BMP in ~1 week. (4) Hypophosphatemia: Code(s): E83.39 - Other disorders of phosphorus metabolism Status: Acute Assessment and Plan: Phosphorus levels were low, secondary to poor oral intake and alcohol abuse. Levels were repleted. Alcohol cessation and proper nutrition was discussed. (5) Alcoholic hepatitis: Qualifiers: Ascites presence: without ascites Qualified Code(s): K70.10 - Alcoholic hepatitis without ascites Code(s): K70.10 - Alcoholic hepatitis without ascites Status: Acute Assessment and Plan: Recent hepatitis panel was negative. She will follow up with Dr. Nehemiah as above. Continue trental, thiamine, and folic acid. (6) Chronic anemia: Code(s): D64.9 - Anemia, unspecified Status: Acute Assessment and Plan: Macrocytic. Iron studies, B12, and folate all within normal limits. This appears to be chronic based on review of prior labs. (7) Alcohol abuse: Code(s): F10.10 - Alcohol abuse, uncomplicated Status: Acute Assessment and Plan: She drinks approximately 6 shots of tequila per day and has done so for years. She did not display any evidence of alcohol withdrawal symptoms. [facility] protocol was in place during her stay. Abstaining from alcohol is imperative and was discussed. Patient stated that she has never been dependent on alcohol. She is motivated to stop drinking. Resources were offered but patient declined and stated that abstaining will not be a problem. She will continue thiamine and folic acid. (8) Jaundice: Code(s): R17 - Unspecified jaundice Status: Acute Assessment and Plan: She was jaundiced and had scleral icterus. Bilirubin was elevated. She will follow up with GI in 1-2 weeks. DS: Summary Hospital Course Reason for hospitalization: Jaundice Hospital Course: Date of admission: 03/13/2020 Date of discharge: 03/16/2020 Crystal Mckinney is a 64 year old female with a PMH significant for alcohol abuse, alcoholic hepatitis, hepatic steatosis, and anemia who presented to the emergency department on 03/13/2020
--- NOTE | 2020-03-16 12:06 | WPDGIPROGNO ---
Progress Note: A&P Additional Plan GI Jose Martin for Nehemiah 03-16-2020 No abdominal pain, nausea, vomiting. Informed patient's this am. [place] po vss soft/NT No asterixis Hct 22->24, MCV 107. INR 1.8. Tbili 13, A/P 273->286, ast 180->155, alt 44->46. B12-> 1,000. Folate 14. Ferritin 216. Fe 60, tibc 214, %sat 28 A/P A. Alcoholic cirrhosis without ascites: - Lab evaluation ordered - Will need EtoH cessation - Will need EGD to evaluate for varices - Fat soluble vitamin levels and Bone densitometry as OP - No evidence of encephalopathy B. Alcoholic hepatitis with abnormal LFT's: - No S/sx of withdrawal - Consider EtoH rehab - Continue Trental - Observe C. Macrocytosis: - B12/folate normal - Secondary to EtOH D. Chronic blood loss anemia: - No active bleed - Follow H+H; transfuse prn - PPI - Endoscopy per Dr. Cerna - Care with aspirin, NSAIDS and anticoagulants E. Constipation: bowel regimen No further recommendations. OK with me for discharge. F/u Dr. Cerna in 2-3 weeks. Thanks, [facility] [phone] Subjective Date/time seen: 03/16/20 12:06 Objective Data Vital Signs Vital Signs: Vital Signs - 24 hr 03/15/20 14:00 03/15/20 22:00 03/16/20 06:39 Temperature 36.7 C 36.8 C 36.8 C Pulse Rate 97 81 80 Respiratory Rate 18 16 18 Blood Pressure 116/50 L 110/47 L 103/54 L Pulse Oximetry 100 97 100 Intake/Output Intake/Output: Intake & Output 03/13/20 03/14/20 03/15/20 03/16/20 23:59 23:59 23:59 23:59 Intake Total 3248.6667 3730 2046 420 Output Total 300 1800 600 Balance 2944.6667 1930 1446 420 Meds/Results Medications: Active Medications Generic Name Dose Route Start Last Admin Trade Name Freq PRN Reason Stop Dose Admin Alprazolam 0.25 mg 03/13/20 21:49 Xanax PO TID PRN Anxiety Folic Acid 1 mg 03/14/20 09:00 03/16/20 09:13 Folic Acid PO 1 mg DAILY MICAELA Administration Furosemide 20 mg 03/16/20 09:00 03/16/20 09:13 Lasix Tablet PO 20 mg DAILY MICAELA Administration Potassium Phosphate 20 mmol/ 256.6667 mls @ 62.5 mls/hr 03/16/20 08:38 03/16/20 09:47 Sodium Chloride IVPB 03/16/20 12:44 62.5 mls/hr ONCE ONE Administration Lactulose 20 gm 03/15/20 09:00 03/15/20 09:22 Lactulose PO 20 gm QAM MICAELA Administration Lorazepam 1 mg 03/13/20 21:48 Ativan Inj IV PUSH Q2H PRN Alcohol withdrawal & CIWA > 8 Multivitamins/Calcium 1 tablet 03/14/20 09:00 03/16/20 09:13 Therapeutic Multivitamins/Minerals PO 1 tablet QAM [facility] Administration Ondansetron HCl 4 mg 03/13/20 10:32 Zofran Inj IV PUSH Q4H PRN Nausea Pantoprazole Sodium 20 mg 03/14/20 09:00 03/16/20 09:13 Protonix PO 20 mg QAM MICAELA Administration Pentoxifylline 400 mg 03/15/20 08:00 03/16/20 09:13 Trental PO 400 mg TIDWM [facility] Administration Thiamine HCl 100 mg 03/14/20 09:00 03/16/20 09:13 Vitamin B-1 PO 100 mg QAM [facility] Administration Tramadol HCl 25 mg 03/13/20 16:00 03/15/20 18:08 Ultram PO 25 mg Q8H PRN Administration Pain Rated 4-6 Radiology Results: ITS Impressions Abdomen/Pelvis CT 03/13/20 09:49 IMPRESSION: 1. Cirrhosis of the liver with portal venous hypertension. 2. Small volume of ascites. 3. 12 mm left adrenal mass. In the absence of known malignancy, this finding is likely an adenoma. Venous Doppler Study 03/14/20 11:20 IMPRESSION: 1. Patent bilateral lower extremity veins. No evidence of deep venous thrombosis. Labs Labs: Laboratory Results - last 24 hr 03/15/20 03/15/20 03/15/20 15:18 15:18 15:18 WBC RBC Hgb Hct MCV MCH MCHC RDW Plt Count MPV Immature Gran % (Auto) Neut % (Auto) Lymph % (Auto) [place] % (Auto) Eos % (Auto) Baso % (Auto) Lymph # (Auto) [place] # (Auto) Eos # (Auto) Baso # (Auto) Abs Immat Gran (auto) Absolute Neuts (auto) Absolute Nucleated
[2020-03-17 04:32] LABS: Osmolality, Urine 114 mOsm/kg (50-1200)
[2020-03-18 21:39] LABS: Ceruloplasmin 31 mg/dL (18-53)
[2020-03-19 12:01] LABS: Anti Nuclear Antibody Titer 1:40 (Negative)
[2020-03-19 21:50] LABS: Mitochondrial (M2) Ab (IgG) <=20.0 U (<=20.0)
== END 2020-03-16 13:10 | disposition home or self-care (01) | DRG 433 ==
LOC: ANHED 10:39 → ANH2MED 10:49 → ANHIMU 11:08 → ANH3MEDSUR 03-16 10:43 → ANHIMU 03-18 16:18
PROVIDERS: Internal Medicine; Internal Medicine Gastroenterology; Physician Assistant; Admitting Provider Family Medicine; Emergency Provider Emergency Medicine; PCP Family Medicine; Visit Provider Internal Medicine
DX: K70.31 Alcoholic cirrhosis of liver with ascites; E87.1 Hypo-osmolality and hyponatremia; K76.6 Portal hypertension; I85.10 Secondary esophageal varices without bleeding; E83.39 Other disorders of phosphorus metabolism; K70.11 Alcoholic hepatitis with ascites; K76.0 Fatty (change of) liver, not elsewhere classified; F10.10 Alcohol abuse, uncomplicated; E87.6 Hypokalemia; D53.9 Nutritional anemia, unspecified; K59.00 Constipation, unspecified; R14.0 Abdominal distension (gaseous); D35.02 Benign neoplasm of left adrenal gland; Z87.891 Personal history of nicotine dependence
CPT/HCPCS: 36415; 36600; 74177; 80048; 80053; 81001; 82103; 82140; 82248; 82390; 82570; 82607; 82728; 82746; 83520; 83540; 83550; 83690; 83735; 83930; 83935; 84100; 84132; 84295; 84300; 84443; 85014; 85018; 85025; 85027; 85055; 85610; 85730; 86038; 86039; 87086; 87088; 93970; 96361; 96365; 99285; A9270; C9113; J3411; J3475; J3480; J7030; J7050; Q9967

== ENCOUNTER 2020-03-25 11:56 | Outpatient (CLI) | payer OTHER, SELFPAY ==
[2020-03-25 13:44] LABS: Blood Urea Nitrogen 8 mg/dL (7-17); Calcium 7.4 mg/dL (8.4-10.2); Carbon Dioxide 29 mmol/L (22-30); Chloride 89 mmol/L (98-107); Estimated Glomerular Filt Rate > 60; Glucose 100 mg/dL (65-105); Potassium 2.6 mmol/L (3.4-5.0); Sodium 125 mmol/L (137-145)
== END 2020-03-25 11:57 | disposition home or self-care (01) ==
LOC: ANHLAB 11:58
PROVIDERS: PCP Family Medicine; Visit Provider Physician Assistant
DX: E87.6 Hypokalemia (principal); E87.1 Hypo-osmolality and hyponatremia
CPT/HCPCS: 36415; 80048

== ENCOUNTER 2020-03-28 07:09 | Outpatient (CLI) | payer OTHER, SELFPAY ==
--- NOTE | ~2020-03-28 | XR_ITS ---
XR chest 2V DATE: 03/28/2020 08:55 INDICATION: Cough. No fever. TECHNIQUE: PA and lateral views COMPARISON: None FINDINGS: Normal heart size. There is mild discoid atelectasis in the mid to lower lung zones bilater ally. No pulmonary consolidation, pleural effusion, adenopathy or pneumothorax is detected. No hilar or mediastinal enlargement. Osteopenia. IMPRESSION: Mild discoid atelectasis and/or scarring of the lungs; otherwise no active cardiopulmonar y disease Reviewed, dictated and finalized at location A. IMPRESSION: Mild discoid atelectasis and/or scarring of the lungs; otherwise no active cardiopulmonary disease
== END 2020-03-28 07:10 | disposition home or self-care (01) ==
LOC: ANHIMG 07:11
PROVIDERS: PCP Family Medicine; Visit Provider Family Medicine
DX: R05 Cough (principal); R91.8 Other nonspecific abnormal finding of lung field
CPT/HCPCS: 71046

== ENCOUNTER 2020-04-10 16:21 | Outpatient (CLI) | payer OTHER, SELFPAY ==
[2020-04-10 16:54] LABS: Basophils Absolute Auto 0.1 K/mm3 (0.0-0.1); Basophils Percent Auto 0.9 % (0.2-1.2); Eosinophils Absolute Auto 0.2 K/mm3 (0-0.3); Eosinophils Percent Auto 1.9 % (0-4.4); Hematocrit 24.8 % (37.0-47.0); Hemoglobin 8.2 g/dL (12.0-15.0); Immature Granulocyte Absolute 0.03 K/mm3 (0.00-0.031); Immature Granulocyte Percent A 0.4 % (0-0.5); Lymphocytes Absolute Auto 1.36 K/mm3 (0.9-3.2); Lymphocytes Percent Auto 17.7 % (18.3-44.2); Mean Corpuscular HGB Conc 33.1 g/dl (32-36); Mean Corpuscular Hemoglobin 36.4 pg (26-34); Mean Corpuscular Volume 110.2 fl (80-100); Mean Platelet Volume 12.6 fl (7.4-10.4); Monocytes Absolute Auto 0.6 K/mm3 (0.1-0.6); Monocytes Percent Auto 8.2 % (2.6-8.5); Neutrophils Absolute Auto 5.5 K/mm3 (1.3-6.7); Neutrophils Percent Auto 70.9 % (45.5-73.1); Platelet Count Result 203 k/mm3 (150-375); Red Blood Count 2.25 M/mm3 (4.2-5.4); Red Cell Distribution Width 14.5 % (11.5-14.5); White Blood Count 7.7 K/mm3 (4.5-10.0)
[2020-04-10 17:07] LABS: Blood Urea Nitrogen 11 mg/dL (7-17); Calcium 8.1 mg/dL (8.4-10.2); Carbon Dioxide 28 mmol/L (22-30); Chloride 100 mmol/L (98-107); Estimated Glomerular Filt Rate > 60; Glucose 104 mg/dL (65-105); Potassium 3.1 mmol/L (3.4-5.0); Sodium 132 mmol/L (137-145)
[2020-04-10 17:08] LABS: Alanine Aminotransferase 40 U/L (4-35); Albumin Level 2.7 g/dL (3.5-5.1); Alkaline Phosphatase 194 U/L (38-126); Aspartate Amino Transferase 108 U/L (14-36); Bilirubin,Total 6.5 mg/dL (0.2-1.3); Blood Urea Nitrogen 11 mg/dL (7-17); Calcium 8.1 mg/dL (8.4-10.2); Carbon Dioxide 26 mmol/L (22-30); Chloride 99 mmol/L (98-107); Estimated Glomerular Filt Rate > 60; Glucose 105 mg/dL (65-105); INR 1.7; Potassium 3.1 mmol/L (3.4-5.0); Prothrombin Time 19.7 Seconds (11.1-14.7); Sodium 133 mmol/L (137-145)
== END 2020-04-10 16:22 | disposition home or self-care (01) ==
LOC: ANHLAB 16:24
PROVIDERS: Physician Assistant; PCP Family Medicine; Visit Provider Family Medicine
DX: K74.60 Unspecified cirrhosis of liver (principal); F10.10 Alcohol abuse, uncomplicated; E87.1 Hypo-osmolality and hyponatremia; E83.39 Other disorders of phosphorus metabolism; K70.10 Alcoholic hepatitis without ascites; D53.9 Nutritional anemia, unspecified; K76.0 Fatty (change of) liver, not elsewhere classified
CPT/HCPCS: 36415; 80048; 80053; 84443; 85025; 85610

== ENCOUNTER 2020-04-16 08:56 | Outpatient (CLI) | payer OTHER, SELFPAY ==
[2020-04-16 09:34] LABS: Blood Urea Nitrogen 10 mg/dL (7-17); Calcium 8.3 mg/dL (8.4-10.2); Carbon Dioxide 31 mmol/L (22-30); Chloride 99 mmol/L (98-107); Estimated Glomerular Filt Rate > 60; Glucose 95 mg/dL (65-105); Potassium 3.2 mmol/L (3.4-5.0); Sodium 133 mmol/L (137-145)
== END 2020-04-16 08:57 | disposition home or self-care (01) ==
LOC: ANHLAB 09:00
PROVIDERS: PCP Family Medicine; Visit Provider Physician Assistant
DX: E87.6 Hypokalemia (principal)
CPT/HCPCS: 36415; 80048

== ENCOUNTER 2020-04-24 12:50 | Outpatient (CLI) | payer OTHER, SELFPAY ==
--- NOTE | ~2020-04-24 | US_ITS ---
EXAMINATION: US venous doppler [facility] DATE: 04/24/2020 13:24 INDICATION: Lower limb pain and swelling TECHNIQUE: Grayscale ultrasound images without and with compression and Doppler ultrasound images of the bilateral lower extremity veins were obtained. COMPARISON: None. FINDINGS: The visualized portions of right common femoral vein, profunda (deep) femoral vein, femoral vein, pop liteal vein, posterior tibial veins, peroneal veins, gastrocnemius vein and greater saphenous vein ou tflow are patent. The visualized portions of left common femoral vein, profunda femoral vein, femoral vein, popliteal v ein, posterior tibial veins, peroneal veins, gastrocnemius vein and greater saphenous vein outflow ar e patent. IMPRESSION: 1. No deep venous thrombosis in either lower limb. Reviewed, dictated and finalized at location A.
[2020-04-24 14:03] LABS: Basophils Percent Auto 0.6 % (0.2-1.2); Eosinophils Absolute Auto 0.1 K/mm3 (0-0.3); Eosinophils Percent Auto 1.5 % (0-4.4); Hematocrit 26.9 % (37.0-47.0); Hemoglobin 8.8 g/dL (12.0-15.0); Immature Granulocyte Absolute 0.02 K/mm3 (0.00-0.031); Immature Granulocyte Percent A 0.4 % (0-0.5); Lymphocytes Absolute Auto 1.36 K/mm3 (0.9-3.2); Lymphocytes Percent Auto 28.6 % (18.3-44.2); Mean Corpuscular HGB Conc 32.7 g/dl (32-36); Mean Corpuscular Hemoglobin 35.2 pg (26-34); Mean Corpuscular Volume 107.6 fl (80-100); Mean Platelet Volume 12.8 fl (7.4-10.4); Monocytes Absolute Auto 0.4 K/mm3 (0.1-0.6); Monocytes Percent Auto 8.6 % (2.6-8.5); Neutrophils Absolute Auto 2.9 K/mm3 (1.3-6.7); Neutrophils Percent Auto 60.3 % (45.5-73.1); Platelet Count Result 196 k/mm3 (150-375); Red Cell Distribution Width 13.1 % (11.5-14.5); White Blood Count 4.8 K/mm3 (4.5-10.0)
[2020-04-24 14:19] LABS: Alanine Aminotransferase 21 U/L (4-35); Albumin Level 2.8 g/dL (3.5-5.1); Alkaline Phosphatase 160 U/L (38-126); Aspartate Amino Transferase 61 U/L (14-36); Bilirubin,Total 4.5 mg/dL (0.2-1.3); Blood Urea Nitrogen 8 mg/dL (7-17); Calcium 8.1 mg/dL (8.4-10.2); Carbon Dioxide 29 mmol/L (22-30); Chloride 95 mmol/L (98-107); Estimated Glomerular Filt Rate > 60; Glucose 84 mg/dL (65-105); Potassium 3.1 mmol/L (3.4-5.0); Sodium 131 mmol/L (137-145)
[2020-04-24 14:27] LABS: NT Pro B Type Natriuretic Pept 278 PG/ML (5-100)
== END 2020-04-24 12:51 | disposition home or self-care (01) ==
PROVIDERS: PCP Family Medicine; Visit Provider Physician Assistant
DX: R60.9 Edema, unspecified (principal); M79.606 Pain in leg, unspecified; D64.9 Anemia, unspecified; E87.6 Hypokalemia; K74.60 Unspecified cirrhosis of liver
CPT/HCPCS: 36415; 80053; 83880; 85025; 93970

== ENCOUNTER 2020-05-07 17:06 | Outpatient (CLI) | payer OTHER, SELFPAY ==
[2020-05-07 17:52] LABS: Alanine Aminotransferase 15 U/L (4-35); Albumin Level 2.7 g/dL (3.5-5.1); Alkaline Phosphatase 160 U/L (38-126); Anion Gap 8.4 mmol/L (7-16); Aspartate Amino Transferase 43 U/L (14-36); Bilirubin,Total 3.4 mg/dL (0.2-1.3); Blood Urea Nitrogen 10 mg/dL (7-17); Calcium 8.9 mg/dL (8.4-10.2); Carbon Dioxide 30 mmol/L (22-30); Chloride 99 mmol/L (98-107); Estimated Glomerular Filt Rate > 60; Glucose 101 mg/dL (65-105); Potassium 3.4 mmol/L (3.4-5.0); Sodium 134 mmol/L (137-145)
== END 2020-05-07 17:07 | disposition home or self-care (01) ==
PROVIDERS: PCP Family Medicine; Visit Provider Family Medicine
DX: R94.5 Abnormal results of liver function studies (principal)
CPT/HCPCS: 36415; 80053

== ENCOUNTER 2020-05-22 12:43 | Outpatient (CLI) | payer OTHER, SELFPAY ==
[2020-05-22 13:40] LABS: Alanine Aminotransferase 16 U/L (4-35); Alkaline Phosphatase 138 U/L (38-126); Anion Gap 9.5 mmol/L (7-16); Aspartate Amino Transferase 45 U/L (14-36); Bilirubin,Total 3.6 mg/dL (0.2-1.3); Blood Urea Nitrogen 6 mg/dL (7-17); Calcium 8.3 mg/dL (8.4-10.2); Carbon Dioxide 30 mmol/L (22-30); Chloride 97 mmol/L (98-107); Estimated Glomerular Filt Rate > 60; Glucose 101 mg/dL (65-105); Potassium 2.5 mmol/L (3.4-5.0); Sodium 134 mmol/L (137-145)
== END 2020-05-22 12:44 | disposition home or self-care (01) ==
LOC: ANHLAB 12:45
PROVIDERS: PCP Family Medicine; Visit Provider Family Medicine
DX: K74.60 Unspecified cirrhosis of liver (principal); E87.6 Hypokalemia
CPT/HCPCS: 36415; 80053

== ENCOUNTER 2020-05-29 12:59 | Outpatient (CLI) | payer SELFPAY ==
[2020-05-29 13:46] LABS: Anion Gap 6 mmol/L (8-16); Blood Urea Nitrogen 9 mg/dL (7-17); Calcium 9.2 mg/dL (8.4-10.2); Carbon Dioxide 31 mmol/L (22-30); Chloride 97 mmol/L (98-107); Estimated Glomerular Filt Rate > 60; Glucose 97 mg/dL (65-105); Magnesium 1.2 mg/dL (1.6-2.3); Phosphorus 4.3 mg/dL (2.5-4.5); Potassium 2.9 mmol/L (3.4-5.0); Sodium 134 mmol/L (137-145)
== END 2020-05-29 13:00 | disposition home or self-care (01) ==
PROVIDERS: PCP Family Medicine; Referring Provider Internal Medicine Nephrology; Visit Provider Physician Assistant
DX: E87.6 Hypokalemia (principal)
CPT/HCPCS: 36415; 80069; 83735

== ENCOUNTER 2020-06-12 09:07 | Outpatient (CLI) | payer OTHER, SELFPAY ==
[2020-06-12 10:25] LABS: Anion Gap 5 mmol/L (8-16); Blood Urea Nitrogen 9 mg/dL (7-17); Calcium 8.1 mg/dL (8.4-10.2); Carbon Dioxide 28 mmol/L (22-30); Chloride 103 mmol/L (98-107); Estimated Glomerular Filt Rate > 60; Glucose 95 mg/dL (65-105); Magnesium 1.5 mg/dL (1.6-2.3); Potassium 3.2 mmol/L (3.4-5.0); Sodium 136 mmol/L (137-145)
== END 2020-06-12 09:08 | disposition home or self-care (01) ==
PROVIDERS: PCP Family Medicine; Visit Provider Physician Assistant
DX: E87.6 Hypokalemia (principal); R79.0 Abnormal level of blood mineral
CPT/HCPCS: 36415; 80048; 83735

== ENCOUNTER 2020-09-15 13:20 | Outpatient (CLI) | payer OTHER, SELFPAY ==
[2020-09-15 13:53] LABS: Basophils Percent Auto 0.6 % (0.2-1.2); Eosinophils Absolute Auto 0.1 K/mm3 (0-0.3); Eosinophils Percent Auto 2.8 % (0-4.4); Hematocrit 24.3 % (37.0-47.0); Hemoglobin 8.1 g/dL (12.0-15.0); Immature Granulocyte Absolute 0.01 K/mm3 (0.00-0.031); Immature Granulocyte Percent A 0.3 % (0-0.5); Lymphocytes Absolute Auto 0.93 K/mm3 (0.9-3.2); Lymphocytes Percent Auto 28.8 % (18.3-44.2); Mean Corpuscular HGB Conc 33.3 g/dl (32-36); Mean Corpuscular Hemoglobin 32.8 pg (26-34); Mean Corpuscular Volume 98.4 fl (80-100); Mean Platelet Volume 12.4 fl (7.4-10.4); Monocytes Absolute Auto 0.3 K/mm3 (0.1-0.6); Monocytes Percent Auto 8.7 % (2.6-8.5); Neutrophils Absolute Auto 1.9 K/mm3 (1.3-6.7); Neutrophils Percent Auto 58.8 % (45.5-73.1); Platelet Count Result 152 k/mm3 (150-375); Red Blood Count 2.47 M/mm3 (4.2-5.4); Red Cell Distribution Width 14.6 % (11.5-14.5); White Blood Count 3.2 K/mm3 (4.5-10.0)
[2020-09-15 15:36] LABS: Folic Acid > 20.0 ng/mL (2.76->20)
[2020-09-19 09:48] LABS: Vitamin B1 42 nmol/L (8-30)
== END 2020-09-15 13:21 | disposition home or self-care (01) ==
PROVIDERS: PCP Family Medicine; Visit Provider Physician Assistant
DX: E51.9 Thiamine deficiency, unspecified (principal); K70.10 Alcoholic hepatitis without ascites; E53.8 Deficiency of other specified B group vitamins
CPT/HCPCS: 36415; 82607; 82746; 84425; 85025

== ENCOUNTER 2020-09-17 07:28 | Outpatient (CLI) | payer OTHER, SELFPAY ==
--- NOTE | ~2020-09-17 | US_ITS ---
EXAMINATION: US paracentesis abd w/image DATE: 09/17/2020 09:29 INDICATION: Ascites. TECHNIQUE: The procedure and its risks, benefits, and alternatives were discussed with the patient. P otential risks discussed included bleeding and infection. The skin was prepped and draped in sterile fashion. 1% lidocaine was used for local anesthesia. Under ultrasound guidance, a 5 Fr catheter with trochar was advanced into the ascites in the right lower quadrant. Fluid was aspirated. The catheter was removed, and a dressing was applied. There were no immediate complications. FINDINGS: Ultrasound images demonstrate ascites and the catheter within the fluid. IMPRESSION: 1. Successful ultrasound-guided paracentesis yielding 5000 mL of clear, yellow fluid. Reviewed, dictated and finalized at location A. STICKER
[2020-09-17 08:08] LABS: Hematocrit 24.2 % (37.0-47.0); Mean Corpuscular HGB Conc 33.1 g/dl (32-36); Mean Corpuscular Hemoglobin 31.9 pg (26-34); Mean Corpuscular Volume 96.4 fl (80-100); Mean Platelet Volume 11.9 fl (7.4-10.4); Platelet Count Result 173 k/mm3 (150-375); Red Blood Count 2.51 M/mm3 (4.2-5.4); Red Cell Distribution Width 14.7 % (11.5-14.5); White Blood Count 3.2 K/mm3 (4.5-10.0)
[2020-09-17 08:17] LABS: INR 1.3
[2020-09-17 12:14] LABS: Appearance Peritoneal Fluid Cloudy (Clear); Color Peritoneal Fluid Yellow (Colorless); Source Peritoneal Fluid Peritoneal Fluid
[2020-09-17 12:15] LABS: Lymphocytes Peritoneal Fluid 74 %; Macrophages Peritoneal Fluid 8 %; Mesothelial Cells Peritoneal Fluid 3 %; Monocytes Peritoneal Fluid 11 %; Neutrophils Peritoneal Fluid 4 % (0-25)
[2020-09-20 11:40] LABS: Glucose Peritoneal Fluid 97 mg/dL; LDH Peritoneal Fluid 69 U/L (<63)
[2020-09-21 15:02] LABS: Alpha Fetoprotein Tumor Marker 3.6 ng/mL (<6.1)
== END 2020-09-17 07:29 | disposition home or self-care (01) ==
PROVIDERS: PCP Family Medicine; Visit Provider Internal Medicine Gastroenterology
DX: R18.8 Other ascites (principal)
CPT/HCPCS: 36415; 49083; 82105; 82945; 83615; 84157; 85027; 85610; 87070; 87075; 87205; 88104; 88108; 88305; 89051

== ENCOUNTER 2020-11-03 10:21 | Outpatient (CLI) | payer OTHER, SELFPAY ==
[2020-11-03 10:56] LABS: Hematocrit 27.6 % (37.0-47.0); Mean Corpuscular HGB Conc 32.6 g/dl (32-36); Mean Corpuscular Hemoglobin 31.6 pg (26-34); Mean Corpuscular Volume 96.8 fl (80-100); Mean Platelet Volume 12.3 fl (7.4-10.4); Platelet Count Result 157 k/mm3 (150-375); Red Blood Count 2.85 M/mm3 (4.2-5.4); Red Cell Distribution Width 14.7 % (11.5-14.5); White Blood Count 4.1 K/mm3 (4.5-10.0)
[2020-11-03 11:12] LABS: Alanine Aminotransferase 15 U/L (4-35); Alkaline Phosphatase 124 U/L (38-126); Anion Gap 7 mmol/L (8-16); Aspartate Amino Transferase 31 U/L (14-36); Bilirubin,Total 1.2 mg/dL (0.2-1.3); Blood Urea Nitrogen 19 mg/dL (7-17); Calcium 9.1 mg/dL (8.4-10.2); Carbon Dioxide 24 mmol/L (22-30); Chloride 103 mmol/L (98-107); Estimated Glomerular Filt Rate > 60; Glucose 96 mg/dL (65-105); Potassium 4.8 mmol/L (3.4-5.0); Sodium 134 mmol/L (137-145)
== END 2020-11-03 10:22 | disposition home or self-care (01) ==
LOC: ANHLAB 10:22
PROVIDERS: PCP Family Medicine; Visit Provider Internal Medicine Gastroenterology
DX: R18.8 Other ascites (principal)
CPT/HCPCS: 36415; 80053; 85027

== ENCOUNTER 2021-04-27 10:04 | Outpatient (CLI) | payer OTHER, SELFPAY ==
[2021-04-27 10:37] LABS: Hematocrit 30.6 % (37.0-47.0); Mean Corpuscular HGB Conc 32.7 g/dl (32-36); Mean Corpuscular Hemoglobin 32.3 pg (26-34); Mean Corpuscular Volume 98.7 fl (80-100); Mean Platelet Volume 12.3 fl (7.4-10.4); Platelet Count Result 168 k/mm3 (150-375); Red Cell Distribution Width 14.1 % (11.5-14.5); White Blood Count 5.3 K/mm3 (4.5-10.0)
[2021-04-27 10:39] LABS: Add Urine Microscopic? NO; Appearance Urine Clear (Clear); Bilirubin Urine Negative (Negative); Blood Urine Negative (Negative); Color Urine Colorless (Yellow); Glucose Urine UA Negative (Negative); Ketones Urine Negative (Negative); Leukocyte Esterase Ur Negative LEU/UL (NEGATIVE); Nitrate Urine Negative (Negative); Protein Urine Negative (Negative); Specific Grav Ur 1.005 (1.001-1.035); Urobilinogen Urine Negative mg/dL (<2.0)
[2021-04-27 10:48] LABS: Alanine Aminotransferase 20 U/L (4-35); Albumin Level 4.7 g/dL (3.5-5.1); Alkaline Phosphatase 128 U/L (38-126); Anion Gap 9 mmol/L (8-16); Aspartate Amino Transferase 37 U/L (14-36); Bilirubin,Total 0.9 mg/dL (0.2-1.3); Blood Urea Nitrogen 25 mg/dL (7-17); Carbon Dioxide 26 mmol/L (22-30); Chloride 103 mmol/L (98-107); Cholesterol 132 mg/dL (0-200); Estimated Glomerular Filt Rate 35; Glucose 100 mg/dL (65-105); HDL Direct 56 mg/dL; Potassium 5.7 mmol/L (3.4-5.0); Sodium 138 mmol/L (137-145); Triglycerides 57 mg/dL (<150)
[2021-04-27 10:55] LABS: INR 1.1; Prothrombin Time 14.5 Seconds (11.1-14.7)
[2021-04-27 11:00] LABS: LDL Cholesterol Direct 47 mg/dL
== END 2021-04-27 10:05 | disposition home or self-care (01) ==
LOC: ANHLAB 10:09
PROVIDERS: PCP Family Medicine; Visit Provider Family Medicine
DX: K70.30 Alcoholic cirrhosis of liver without ascites (principal); R53.83 Other fatigue; Z00.00 Encounter for general adult medical examination without abnormal findings
CPT/HCPCS: 36415; 80053; 80061; 81003; 84443; 85027; 85610

== ENCOUNTER 2021-11-02 10:15 | Outpatient (CLI) | payer OTHER, SELFPAY ==
[2021-11-02 10:44] LABS: Alanine Aminotransferase 17 U/L (4-35); Albumin Level 4.6 g/dL (3.5-5.1); Alkaline Phosphatase 192 U/L (38-126); Anion Gap 12 mmol/L (8-16); Aspartate Amino Transferase 28 U/L (14-36); Bilirubin,Total 0.6 mg/dL (0.2-1.3); Blood Urea Nitrogen 26 mg/dL (7-17); Calcium 9.6 mg/dL (8.4-10.2); Carbon Dioxide 21 mmol/L (22-30); Chloride 105 mmol/L (98-107); Estimated Glomerular Filt Rate 35; Glucose 93 mg/dL (65-110); Magnesium 1.9 mg/dL (1.6-2.3); Potassium 4.5 mmol/L (3.4-5.0); Sodium 138 mmol/L (137-145)
[2021-11-02 10:55] LABS: Add Urine Microscopic? NO; Appearance Urine Clear (Clear); Bilirubin Urine Negative (Negative); Blood Urine Negative (Negative); Color Urine Straw (Yellow); Glucose Urine UA Negative (Negative); Ketones Urine Negative (Negative); Leukocyte Esterase Ur Negative LEU/UL (NEGATIVE); Nitrate Urine Negative (Negative); Protein Urine Negative (Negative); Specific Grav Ur 1.005 (1.001-1.035); Urobilinogen Urine Negative mg/dL (<2.0)
== END 2021-11-02 10:16 | disposition home or self-care (01) ==
LOC: ANHLAB 10:17
PROVIDERS: PCP Family Medicine; Visit Provider Family Medicine
DX: E83.39 Other disorders of phosphorus metabolism (principal); K70.30 Alcoholic cirrhosis of liver without ascites; R10.9 Unspecified abdominal pain
CPT/HCPCS: 36415; 80053; 81003; 83735

== ENCOUNTER 2022-05-03 09:52 | Outpatient (CLI) | payer OTHER, SELFPAY ==
[2022-05-03 10:21] LABS: Basophils Percent Auto 0.9 % (0.2-1.2); Eosinophils Absolute Auto 0.1 K/mm3 (0-0.3); Eosinophils Percent Auto 1.5 % (0-4.4); Hematocrit 26.9 % (37.0-47.0); Hemoglobin 8.4 g/dL (12.0-15.0); Immature Granulocyte Absolute 0.02 K/mm3 (0.00-0.031); Immature Granulocyte Percent A 0.4 % (0-0.5); Lymphocytes Absolute Auto 0.82 K/mm3 (0.9-3.2); Lymphocytes Percent Auto 18.1 % (18.3-44.2); Mean Corpuscular HGB Conc 31.2 g/dl (32-36); Mean Corpuscular Hemoglobin 28.4 pg (26-34); Mean Corpuscular Volume 90.9 fl (80-100); Mean Platelet Volume 12.4 fl (7.4-10.4); Monocytes Absolute Auto 0.3 K/mm3 (0.1-0.6); Monocytes Percent Auto 7.3 % (2.6-8.5); Neutrophils Absolute Auto 3.3 K/mm3 (1.3-6.7); Neutrophils Percent Auto 71.8 % (45.5-73.1); Platelet Count Result 137 k/mm3 (150-375); Red Blood Count 2.96 M/mm3 (4.2-5.4); Red Cell Distribution Width 16.2 % (11.5-14.5); White Blood Count 4.5 K/mm3 (4.5-10.0)
[2022-05-03 10:37] LABS: Alanine Aminotransferase 26 U/L (6-35); Albumin Level 4.5 g/dL (3.5-5.1); Alkaline Phosphatase 156 U/L (38-126); Anion Gap 8 mmol/L (8-16); Aspartate Amino Transferase 33 U/L (14-36); Bilirubin,Total 0.4 mg/dL (0.2-1.3); Blood Urea Nitrogen 25 mg/dL (7-17); Calcium 9.1 mg/dL (8.4-10.2); Carbon Dioxide 23 mmol/L (22-30); Chloride 105 mmol/L (98-107); Cholesterol 132 mg/dL (0-200); Estimated Glomerular Filt Rate 45; Glucose 106 mg/dL (65-110); HDL Direct 42 mg/dL; Potassium 4.6 mmol/L (3.4-5.0); Sodium 136 mmol/L (137-145); Triglycerides 56 mg/dL (<150)
[2022-05-03 10:45] LABS: Appearance Urine Clear (Clear); Bilirubin Urine Negative (Negative); Color Urine Yellow (Yellow); Glucose Urine UA Negative (Negative); Ketones Urine Negative (Negative); Leukocyte Esterase Ur Negative LEU/UL (NEGATIVE); Nitrate Urine Negative (Negative); Protein Urine Negative (Negative); Specific Grav Ur <= 1.005 (1.001-1.035); Urobilinogen Urine 0.2 mg/dL (<2.0)
[2022-05-03 10:48] LABS: LDL Cholesterol Direct 53 mg/dL
[2022-05-03 10:53] LABS: Add Urine Microscopic? YES; Blood Urine Trace-Intact (Negative)
[2022-05-03 10:55] LABS: Mucus Urine Rare /lpf; RBC Urine 0-2 /hpf (0-2); Squamous Epithelial Cell Urine Rare /hpf (Few); WBC Urine 0-3 /hpf (0-3)
== END 2022-05-03 09:53 | disposition home or self-care (01) ==
LOC: ANHLAB 09:53
PROVIDERS: PCP Family Medicine; Visit Provider Family Medicine
DX: K70.30 Alcoholic cirrhosis of liver without ascites (principal); D64.9 Anemia, unspecified; E78.5 Hyperlipidemia, unspecified; Z00.00 Encounter for general adult medical examination without abnormal findings
CPT/HCPCS: 36415; 80053; 80061; 81001; 84443; 85025

== ENCOUNTER 2022-10-29 08:47 | Outpatient (CLI) | payer BC, SELFPAY ==
[2022-10-29 09:37] LABS: Alanine Aminotransferase 35 U/L (6-35); Albumin Level 4.3 g/dL (3.5-5.1); Alkaline Phosphatase 141 U/L (38-126); Anion Gap 7 mmol/L (8-16); Aspartate Amino Transferase 38 U/L (14-36); Bilirubin,Total 0.9 mg/dL (0.2-1.3); Blood Urea Nitrogen 20 mg/dL (7-17); Carbon Dioxide 24 mmol/L (22-30); Chloride 107 mmol/L (98-107); Estimated Glomerular Filt Rate 45; Glucose 120 mg/dL (65-110); Potassium 4.7 mmol/L (3.4-5.0); Sodium 138 mmol/L (137-145)
[2022-10-29 09:45] LABS: Basophils Absolute Auto 0.1 K/mm3 (0.0-0.1); Basophils Percent Auto 1.2 % (0.2-1.2); Eosinophils Absolute Auto 0.2 K/mm3 (0-0.3); Eosinophils Percent Auto 3.5 % (0-4.4); Hematocrit 30.9 % (37.0-47.0); Hemoglobin 9.6 g/dL (12.0-15.0); Immature Granulocyte Absolute 0.02 K/mm3 (0.00-0.031); Immature Granulocyte Percent A 0.5 % (0-0.5); Immature Platelet Fraction Pct 16.4 % (0.9-11.2); Mean Corpuscular HGB Conc 31.1 g/dl (32-36); Mean Corpuscular Hemoglobin 28.9 pg (26-34); Mean Corpuscular Volume 93.1 fl (80-100); Mean Platelet Volume 13.1 fl (7.4-10.4); Monocytes Absolute Auto 0.4 K/mm3 (0.1-0.6); Monocytes Percent Auto 8.4 % (2.6-8.5); Neutrophils Absolute Auto 2.8 K/mm3 (1.3-6.7); Neutrophils Percent Auto 65.4 % (45.5-73.1); Platelet Count Result 170 k/mm3 (150-375); Red Blood Count 3.32 M/mm3 (4.2-5.4); Red Cell Distribution Width 17.2 % (11.5-14.5); White Blood Count 4.3 K/mm3 (4.5-10.0)
[2022-10-29 10:08] LABS: Iron 118 ug/dL (37-170)
[2022-10-29 10:22] LABS: Percent Iron Saturation 24 % (20-50)
[2022-10-29 14:16] LABS: Folic Acid > 20.0 ng/mL (2.76->20)
== END 2022-10-29 08:48 | disposition home or self-care (01) ==
LOC: ANHLAB 08:50
PROVIDERS: PCP Family Medicine; Visit Provider Physician Assistant
DX: K70.30 Alcoholic cirrhosis of liver without ascites (principal); D64.9 Anemia, unspecified; K76.0 Fatty (change of) liver, not elsewhere classified
CPT/HCPCS: 36415; 80053; 82607; 82728; 82746; 83540; 83550; 85025; 85055

== ENCOUNTER 2023-05-09 09:08 | Outpatient (CLI) | payer MEDICARE, SELFPAY ==
[2023-05-09 09:42] LABS: Basophils Percent Auto 0.9 % (0.2-1.2); Eosinophils Absolute Auto 0.1 K/mm3 (0-0.3); Hematocrit 29.8 % (37.0-47.0); Hemoglobin 9.6 g/dL (12.0-15.0); Immature Granulocyte Absolute 0.01 K/mm3 (0.00-0.031); Immature Granulocyte Percent A 0.3 % (0-0.5); Lymphocytes Absolute Auto 0.62 K/mm3 (0.9-3.2); Mean Corpuscular HGB Conc 32.2 g/dl (32-36); Mean Corpuscular Hemoglobin 31.1 pg (26-34); Mean Corpuscular Volume 96.4 fl (80-100); Mean Platelet Volume 12.4 fl (7.4-10.4); Monocytes Absolute Auto 0.2 K/mm3 (0.1-0.6); Monocytes Percent Auto 7.1 % (2.6-8.5); Neutrophils Absolute Auto 2.2 K/mm3 (1.3-6.7); Neutrophils Percent Auto 68.7 % (45.5-73.1); Platelet Count Result 142 k/mm3 (150-375); Red Blood Count 3.09 M/mm3 (4.2-5.4); Red Cell Distribution Width 15.9 % (11.5-14.5); White Blood Count 3.3 K/mm3 (4.5-10.0)
[2023-05-09 09:46] LABS: Appearance Urine Clear (Clear); Bacteria Urine None Seen /hpf; Bilirubin Urine Negative (Negative); Blood Urine Negative (Negative); Color Urine Yellow (Yellow); Glucose Urine UA Negative (Negative); Ketones Urine Negative (Negative); Leukocyte Esterase Ur Trace LEU/UL (NEGATIVE); Nitrate Urine Negative (Negative); Non Pathogenic Casts 0-2; Protein Urine Negative (Negative); RBC Urine 0-2 /hpf (0-2); Squamous Epithelial Cell Urine None seen /hpf (Few); Urobilinogen Urine 0.2 mg/dL (<2.0); WBC Urine 0-5 /hpf (0-3)
[2023-05-09 09:52] LABS: Potassium 4.7 mmol/L (3.4-5.0)
[2023-05-09 09:55] LABS: Alanine Aminotransferase 31 U/L (6-35); Albumin Level 4.1 g/dL (3.5-5.1); Alkaline Phosphatase 114 U/L (38-126); Anion Gap 8 mmol/L (8-16); Aspartate Amino Transferase 38 U/L (14-36); Bilirubin,Total 0.7 mg/dL (0.2-1.3); Blood Urea Nitrogen 23 mg/dL (7-17); Calcium 9.1 mg/dL (8.4-10.2); Carbon Dioxide 23 mmol/L (22-30); Chloride 106 mmol/L (98-107); Cholesterol 136 mg/dL (0-200); Estimated Glomerular Filt Rate 50; Glucose 105 mg/dL (65-110); HDL Direct 40 mg/dL; Magnesium 1.9 mg/dL (1.6-2.3); Sodium 137 mmol/L (137-145); Triglycerides 60 mg/dL (<150)
[2023-05-09 10:04] LABS: LDL Cholesterol Direct 61 mg/dL
[2023-05-09 10:06] LABS: Add Urine Microscopic? YES
[2023-05-09 10:23] LABS: Iron 68 ug/dL (37-170)
[2023-05-09 10:35] LABS: Percent Iron Saturation 17 % (20-50)
[2023-05-09 10:59] LABS: Folic Acid 14.7 ng/mL (2.76->20)
== END 2023-05-09 09:09 | disposition home or self-care (01) ==
PROVIDERS: PCP Family Medicine; Visit Provider Family Medicine
DX: K70.30 Alcoholic cirrhosis of liver without ascites (principal); D64.9 Anemia, unspecified; R53.83 Other fatigue; E78.5 Hyperlipidemia, unspecified
CPT/HCPCS: 36415; 80053; 80061; 81001; 82607; 82728; 82746; 83540; 83550; 83735; 84443; 85025

== ENCOUNTER 2023-11-09 09:43 | Outpatient (CLI) | payer MEDICARE, SELFPAY ==
[2023-11-09 10:19] LABS: Hematocrit 31.6 % (37.0-47.0); Hemoglobin 10.3 g/dL (12.0-15.0); Mean Corpuscular HGB Conc 32.6 g/dl (32-36); Mean Corpuscular Hemoglobin 31.7 pg (26-34); Mean Corpuscular Volume 97.2 fl (80-100); Mean Platelet Volume 12.2 fl (7.4-10.4); Platelet Count Result 192 k/mm3 (150-375); Red Blood Count 3.25 M/mm3 (4.2-5.4); Red Cell Distribution Width 14.8 % (11.5-14.5); White Blood Count 4.3 K/mm3 (4.5-10.0)
[2023-11-09 10:31] LABS: Alanine Aminotransferase 29 U/L (6-35); Albumin Level 4.3 g/dL (3.5-5.1); Alkaline Phosphatase 184 U/L (38-126); Anion Gap 9 mmol/L (8-16); Aspartate Amino Transferase 40 U/L (14-36); Bilirubin,Total 1.2 mg/dL (0.2-1.3); Blood Urea Nitrogen 24 mg/dL (7-17); Calcium 9.3 mg/dL (8.4-10.2); Carbon Dioxide 23 mmol/L (22-30); Chloride 106 mmol/L (98-107); Estimated Glomerular Filt Rate 45; Glucose 97 mg/dL (65-110); Potassium 4.6 mmol/L (3.4-5.0); Sodium 138 mmol/L (137-145)
[2023-11-09 11:04] LABS: Rheumatoid Factor < 12.0 IU/ML (<12)
== END 2023-11-09 09:44 | disposition home or self-care (01) ==
PROVIDERS: PCP Family Medicine; Visit Provider Family Medicine
DX: D64.9 Anemia, unspecified (principal); K74.60 Unspecified cirrhosis of liver; N18.30 Chronic kidney disease, stage 3 unspecified
CPT/HCPCS: 36415; 80053; 85027; 86430

== ENCOUNTER 2024-05-26 09:11 | Outpatient (CLI) | payer MEDICARE, SELFPAY ==
[2024-05-26 09:53] LABS: Hematocrit 33.1 % (37.0-47.0); Hemoglobin 9.9 g/dL (12.0-15.0); Mean Corpuscular HGB Conc 29.9 g/dl (32-36); Mean Corpuscular Hemoglobin 28.8 pg (26-34); Mean Corpuscular Volume 96.2 fl (80-100); Mean Platelet Volume 12.9 fl (7.4-10.4); Platelet Count Result 215 k/mm3 (150-375); Red Blood Count 3.44 M/mm3 (4.2-5.4); Red Cell Distribution Width 18.2 % (11.5-14.5); White Blood Count 5.9 K/mm3 (4.5-10.0)
[2024-05-26 10:05] LABS: Rheumatoid Factor < 12.0 IU/ML (<12)
[2024-05-26 10:07] LABS: Alanine Aminotransferase 28 U/L (6-35); Albumin Level 4.4 g/dL (3.5-5.1); Alkaline Phosphatase 143 U/L (38-126); Anion Gap 12 mmol/L (4-12); Aspartate Amino Transferase 40 U/L (14-36); Bilirubin,Total 0.9 mg/dL (0.2-1.3); Blood Urea Nitrogen 25 mg/dL (7-17); Calcium 9.2 mg/dL (8.4-10.2); Carbon Dioxide 20 mmol/L (22-30); Chloride 108 mmol/L (98-107); Cholesterol 122 mg/dL (0-200); Estimated Glomerular Filt Rate 50; Glucose 104 mg/dL (65-110); HDL Direct 45 mg/dL; Potassium 4.1 mmol/L (3.4-5.0); Sodium 140 mmol/L (137-145); Triglycerides 63 mg/dL (<150)
[2024-05-26 10:17] LABS: LDL Cholesterol Direct 51 mg/dL
[2024-05-26 10:40] LABS: Add Urine Microscopic? NO; Appearance Urine Clear (Clear); Bilirubin Urine Negative (Negative); Blood Urine Negative (Negative); Color Urine Yellow (Yellow); Glucose Urine UA Negative (Negative); Ketones Urine Negative (Negative); Leukocyte Esterase Ur Negative LEU/UL (Negative); Nitrate Urine Negative (Negative); Protein Urine Negative (Negative); Specific Grav Ur 1.007 (1.001-1.035); Urobilinogen Urine 0.2 mg/dL (<2.0); pH Urine 5.5 (5.0-9.0)
[2024-05-28 15:34] LABS: Anti Cyclic Citrullinated Pept 70 UNITS
== END 2024-05-26 09:12 | disposition home or self-care (01) ==
PROVIDERS: PCP Family Medicine; Visit Provider Family Medicine
DX: R19.4 Change in bowel habit (principal); K76.0 Fatty (change of) liver, not elsewhere classified; N18.30 Chronic kidney disease, stage 3 unspecified; K74.60 Unspecified cirrhosis of liver; E78.5 Hyperlipidemia, unspecified; D64.9 Anemia, unspecified; M25.50 Pain in unspecified joint
CPT/HCPCS: 36415; 80053; 80061; 81003; 84443; 85027; 86200; 86430

== ENCOUNTER 2024-12-24 10:02 | Outpatient (CLI) | payer MEDICARE, SELFPAY ==
[2024-12-24 11:01] LABS: Alanine Aminotransferase 32 U/L (6-35); Alkaline Phosphatase 159 U/L (38-126); Anion Gap 7 mmol/L (4-12); Aspartate Amino Transferase 45 U/L (14-36); Bilirubin,Total 1.1 mg/dL (0.2-1.3); Blood Urea Nitrogen 25 mg/dL (7-17); Calcium 8.9 mg/dL (8.4-10.2); Carbon Dioxide 21 mmol/L (22-30); Chloride 111 mmol/L (98-107); Estimated Glomerular Filt Rate 50; Glucose 100 mg/dL (65-110); Potassium 4.7 mmol/L (3.4-5.0); Sodium 139 mmol/L (137-145)
--- OUTSIDE RECORDS SUMMARY | 2024-12-24 11:43 | XMS_ITS | Encounter Summary ---
Author Organization [facility] Address [address] [place] [id number] Care Team Providers Care Workers' Compensation Hearings Officer Name Role Phone Unavailable Primary Care Provider Unavailabl e Encounter Details Date Type Department Care Team (Latest Contact Info) Description 08/22/2018 Abstract [facility] , Garry Ramos MD Social History Tobacco Use Types Packs/Day Years Used Date Smoking Tobacco: Never Assessed Comments Unknown Sex and Gender Information Value Date Recorded Sex Assigned at Not on file Legal Sex Female 5:44 PM CDT Gender Identity Not on file Sexual Orientation Not on file documented as of this encounter Plan of Treatment Not on file documented as of this encounter Visit Diagnoses Not on filedocumented in this encounter
--- OUTSIDE RECORDS SUMMARY | 2024-12-24 11:43 | XMS_ITS | Clinical Summary ---
Author Organization [facility] Address [address] [place] [id number] Care Team Providers Care Rubber Calender Helper Name Role Phone Unavailable Primary Care Provider Unavailabl e Social History Tobacco Use Types Packs/Day Years Used Date Smoking Tobacco: Never Assessed Comments Unknown Sex and Gender Information Value Date Recorded Sex Assigned at Not on file Legal Sex Female 5:44 PM CDT Gender Identity Not on file Sexual Orientation Not on file Last Filed Vital Signs Vital Sign Reading Time Taken Comments Blood Pressure 122/58 08/17/2013 9:09 AM CDT Pulse 85 08/17/2013 9:09 AM CDT Temperature - - Respiratory Rate - - Oxygen Saturation - - Inhaled Oxygen Concentration - - Weight 75.3 kg (166 lb) 08/17/2013 9:09 AM CDT Height 172.7 cm (5' 8 ) 08/17/2013 9:09 AM CDT Body Mass Index 25.24 08/17/2013 9:09 AM CDT Plan of Treatment Health Maintenance Due Date Last Done Comments Colorectal Cancer Screening Colonoscopy (10 Years) 1957 Hepatitis C 1975 DTaP, Tdap and Td Vaccines ( 1 - Tdap) 1976 Mammogram Screening 1997 Zoster Vaccines (1 of 2) 2007 Dexa Scan (General) 2022 Pneumococcal Vaccine: 65+ Ye ars (1 of 1 - PCV) 2022 COVID-19 Vaccine ( - 2023-2 5 season) 2024 Influenza Adult (#1) 2024 RSV Immunization or 60+ Years (1 - 1-dose 75+ series) 2032 Meningococcal B Vaccine Aged Out No l onger eligible based on patient's age to complete this topic Meningococcal Vaccine Aged Out No ivis joseluis eligible based on patient's age to complete this topic RSV Immunizations Under 20 Months Aged Out No longer eligible based on patient's age to complete this topic
--- OUTSIDE RECORDS SUMMARY | 2024-12-24 11:43 | XMS_ITS | Clinical Summary ---
Author Organization [facility] Address [address] [place] [id number] Phone Care Team Providers Care Senior Product Marketing Manager Name Role Phone Catracho Nix MD Primary Care Provider [phone] Allergies Active Allergy Reactions Criticality Noted Date Comments Bee Venom Anaphylaxis High 05/25/2020 Medications Medication Sig Dispensed Refills Start Date End Date Status ALPRAZolam (XANAX) 0.25 MG tablet TAKE 1 TABLET BY MOUTH ONCE DAILY NEEDED FOR ANXIETY 04/25/2020 Active folic acid (FOLVITE) 1 MG tablet Take 1,000 mcg by mouth 1 (one) time each day 05/17/2020 Active furosemide (LASIX) 20 MG tablet Take 40 mg by mouth 1 (one) time each day 05/17/2020 Active pentoxifylline (TRENtal) 400 MG CR tablet Take 400 mg by mouth 3 (three) times a day with meals 05/17/2020 Active potassium chloride (MICRO-K) 10 MEQ CR capsule Take 10 mEq by mouth 1 (one) time each day 04/11/2020 Active spironolactone (ALDACTONE) 50 MG tablet Take 50 mg by mouth 1 (one) time each day 05/09/2020 Active traMADol (ULTRAM) 50 MG tablet TAKE 1 TABLET BY MOUTH ONCE DAILY NEEDED FOR PAIN 04/29/2020 Active Active Problems Problem Noted Date Diagnosed Date Edema Alcoholic hepatitis Alcohol abuse Anxiety Anemia Hypertension Gastroesophageal reflux disease Steatosis of liver Family History Medical History Relation Comments Kidney disease Neg Hx Nephrolithiasis Neg Hx Social History Tobacco Use Types Packs/Day Years Used Date Smoking Tobacco: Former Cigarettes 1 20 1 5 - 2004 Smokeless Tobacco: Never Alcohol Use Standard Drinks/Week Comments Not Currently 0 (1 standard drink = 0.6 oz pur e alcohol) Sex and Gender Information Value Date Recorded Sex Assigned at Not on file Gender Identity Not on file Sexual Orientation Not on file Last Filed Vital Signs Vital Sign Reading Time Taken Comments Blood Pressure 110/66 05/26/2020 8:45 AM CDT Pulse - - Temperature 36.7 C (98.1 F) 05/26/2020 8:45 AM CDT Respiratory Rate 18 05/26/2020 8:45 AM CDT Oxygen Saturation - - Inhaled Oxygen Concentration - - Weight 67.1 kg (148 lb) 05/26/2020 8:45 AM CDT Height 172.7 cm (5' 8 ) 05/26/2020 8:45 AM CDT Body Mass Index 22.5 05/26/2020 8:45 AM CDT Plan of Treatment Health Maintenance Due Date Last Done Comments Pneumococcal PPSV23/PCV13 65 + Years / Low and Medium Risk (1 of 4 - PCV) 2022 Influenza Vaccine (#1) 2024 Care Teams Senior Product Marketing Manager Relationship Specialty Start Date End Date Catracho iNx MD [id number] [place] [address] PCP - General Internal Medicine 04/28/20
== END 2024-12-24 10:03 | disposition home or self-care (01) ==
LOC: ANHLAB 10:03
PROVIDERS: PCP Family Medicine; Visit Provider Family Medicine
DX: N18.30 Chronic kidney disease, stage 3 unspecified (principal); K74.60 Unspecified cirrhosis of liver
CPT/HCPCS: 36415; 80053

== ENCOUNTER 2025-06-22 08:32 | Outpatient (CLI) | payer MEDICARE, SELFPAY ==
--- OUTSIDE RECORDS SUMMARY | 2025-06-22 08:37 | XMS_ITS | Encounter Summary ---
Author Organization [facility] Address [facility] [place] [address] Care Team Providers Care Boot Liner Maker Name Role Phone None, Provider Primary Care Provider Unavaila ble Encounter Details Date Type Department Care Team (Latest Contact Info) Description 08/22/2018 Abstract [facility] , Generic Conversion, Social History Tobacco Use Types Packs/Day Years Used Date Smoking Tobacco: Never Assessed Comments Unknown Sex and Gender Information Value Date Recorded Sex Assigned at Not on file Legal Sex Female 5:44 PM CDT Gender Identity Not on file Sexual Orientation Not on file documented as of this encounter Plan of Treatment Upcoming Encounters Date Type Department Care Team (Late st Contact Info) Description 07/01/2025 11:00 AM CDT Appointment [facility] [address] [place] [address] [place] [address] [facility] [address] [place] [address] documented as of this encounter Visit Diagnoses Not on filedocumented in this encounter Care Teams Boot Liner Maker Relationship Specialty Start Date End Date None, Provider, PCP - General UNKNOWN PHYSICIAN SPECIALTY 05/29/25 documented as of this encounter
--- OUTSIDE RECORDS SUMMARY | 2025-06-22 08:37 | XMS_ITS | Clinical Summary ---
Author Organization [facility] Address [address] [place] [address] Care Team Providers Care Lead Fabricator Name Role Phone None, Provider MD Primary Care Provider Unavaila ble Allergies Active Allergy Reactions Criticality Noted Date Comments Bee Venom Anaphylaxis High 05/25/2020 Medications spironolactone (ALDACTONE) 50 MG tablet Take 1 tablet (50 mg total) by mouth every 6 (six) hours. 5 Active furosemide (LASIX) 20 MG tablet Take 2 tablets (40 mg total) by mouth daily. 5 Active ALPRAZolam (XANAX) 0.25 MG tablet Take 1 tablet (0.25 mg total) by mouth nightly as needed. 3 Active esomeprazole (NEXIUM) 40 MG capsule Take 1 capsule (40 mg total) by mouth 2 (two) times daily. 2 Active traMADol (ULTRAM) 50 MG tablet Take 1-2 tablets (50-100 mg total) by mouth every 6 (six) hours as needed. 2 Active gabapentin (NEURONTIN) 100 MG capsuleIndication s:Spider bite wound, accidental or unintentional, subsequent encounter Take 1 capsule (100 mg total) by mouth 3 (three) times daily. 90 capsule 5 Active predniSONE (DELTASONE) 10 mg tabletIndications :Spider bite wound, accidental or unintentional, initial encounter,Skin inflammation,Pablo rgic dermatitis Take 3 tablets (30 mg total) by mouth daily for 5 days. 15 tablet 5 05/28/20 25 doxycycline hyclate (VIBRAMYCIN) 100 MG capsuleIndication s:Spider bite wound, undetermined intent, initial encounter Take 1 capsule (100 mg total) by mouth 2 (two) times daily for 10 days. 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/2013 Chest congestion 01/13/2013 Acute sinusitis 07/23/2012 Cough 07/17/2012 Otalgia, unspecified laterality 07/17/2012 Sore throat 07/17/2012 Resolved Problems Problem Noted Date Diagnosed Date Resolved Date Encounter for preventive health examination 06/13/2012 05/27/2025 Encounters Date Type Department Care Team Description 06/18/2025 1:43 PM CDT - 06/18/2025 11:59 PM CDT Hospital Encounter [facility] [address] [place] [id number] Barrett Forbes MD Discharge Disposition: Home or Self Care (Routine Discharge) 06/18/2025 Travel 06/10/2025 7:54 AM CDT - 06/10/2025 11:59 PM CDT Hospital Encounter [facility] [address] [place] [id number] Barrett Forbes MD Discharge Disposition: Home or Self Care (Routine Discharge) 06/10/2025 Travel 05/31/2025 Telephone [facility] Medical [facility] [address] [phone] Ilan Vásquez PA Medication 05/29/2025 1:20 PM CDT Office Visit [facility] [address] [address] Ilan Vásquez PA Insect Bite (Pt c/o spider bite on left ankle X 10 days. Pt was seen in [place] last thur and treated for the bite) 05/29/2025 Travel 05/29/2025 Telephone [facility] Medicine [facility] [id number] [place] [phone] Ilan Vásquez PA Advice 05/23/2025 1:00 PM CDT Office Visit [facility] [address] [address] Figueroa Escoebdo PA Insect Bite (To left lower leg-x 3 days-now has blister-spider bite?) 05/23/2025 Travel from Last 3 Months Social History Tobacco Use Types Packs/Day Years Used Date Smoking Tobacco: Every Day Cigarettes Passive Smoke Exposure: Current Smokeless Tobacco: Never Tobacco Cessation:Ready to Q uit: Not Asked; Counseling Given: Yes Alcohol Use Standard Drinks/Week Comments Not Currently 0 (1 standard drink = 0.6 oz pur e alcohol) PHQ-2 Answer Date Recorded Patient Health Questionnaire-2 Score 0 05/23/2025 Comments No Sex and Gender Information Value Date Recorded Sex Assigned at Not on file Legal Sex Female 5:44 PM CDT Gender Identity Not on file Sexual Orientation Not on file Last Filed Vital Signs Vital Sign Reading Time Taken Comments Blood Pressure 127/64 05/29/2025 1:27 PM CDT Pulse 84 05/29/2025 1:27 PM CDT Temperature 36.9 C (98.5 F) 05/29/2025 1:27 PM CDT Respiratory Rate 16 05/29/2025 1:27 PM CDT Oxygen Saturation 97% 05/29/2025 1:27 PM CDT Inhaled Oxygen Concentration - - Weight 74.8 kg (165 lb) 05/29/2025 1:27 PM CDT Height 172.7 cm (5' 8) 05/29/2025 1:27 PM CDT Body Mass Index 25.09 05/29/2025 1:27 PM CDT Plan of Treatment Upcoming Encounters Date Type Department Care Team (Late st Contact Info) Description 07/01/2025 11:00 AM CDT Appointment [facility] [address] [place] [address] [place] [address] [facility] [address] [place] [address] Health Maintenance Due Date Last Done Comments Colorectal Cancer Screening Colonoscopy (10 Years) 1955 Hepatitis C 1975 DTaP, Tdap and Td Vaccines ( 1 - Tdap) 1976 Pneumococcal Vaccine: 50+ Ye ars (1 of 2 - PCV) 1976 Mammogram Screening 1997 Zoster Vaccines (1 of 2) 2007 RSV Immunization or 60+ Years (1 - Risk 60-74 years 1-dose series) 2017 Annual Medicare Wellness Visit 2022 Dexa Scan (General) 2022 COVID-19 Vaccine (2023-2 5 season) 2025 PHQ-2 (Physician [place]) Completed 05/23/2025 Meningococcal B Vaccine Aged Out No l onger eligible based on patient's age to complete this topic Meningococcal Vaccine Aged Out No ivis joseluis eligible based on patient's age to complete this topic RSV Immunizations Under 20 Months Aged Out No longer eligible based on patient's age to complete this topic Procedures Procedure Name Priority Date/Time Associated Diagnosis Comments CULTURE, WOUND, W/GRAM STAIN Routine 06/10/2025 9:19 AM CDT Wound drainage PATHOLOGY Routine 06/10/2025 12:00 AM CDT Wound drainage from Last 3 Months Results * CULTURE, WOUND, W/GRAM STAIN (06/10/2025 9:19 AM CDT) SPEC DESCRIPTION ANKLE,LEFT 06/10/2025 9:33 AM CDT [facility] SPECIAL REQUESTS NO SPECIAL REQUEST 06/10/2025 9:33 AM CDT [facility] GRAM STAIN RESULT NO WHITE BLOOD CELLS SEEN 06/10/2025 4:40 PM CDT [facility] GRAM STAIN RESULT NO ORGANISMS SEEN 06/10/2025 4:40 PM CDT [facility] CULTURE RESULT NO GROWTH 3 DAYS 06/13/2025 7:35 AM CDT [facility] ANKLE REGION STRUCTURE / Unknown 06/10/2025 9:19 AM CDT 06/10/2025 9:39 AM CDT us Barrett Forbes MD MICROBIOLOGY - GENERAL ORDERABLE S Final Result [facility] [address] [place] [address], [facility] [address] [place] [address], * Pathology (06/10/2025 12:00 AM CDT) PATHOLOGY [facility] Department of Laboratory Medicine [address] [place] [id number] , extension [phone] Pathology Report Surgical Pathology Report Name: CRYSTAL MOREIRA Specimen #: [id number] Age: 2 1955 (Age: 69) Location: [facility] Sex: F Procedure Date: 06/10/2025 Hospital #: [id number] Date Received: 06/11/2025 Date Reported: 06/12/2025 Provider: BARRETT FORBES MD Source: Skin, left ankle, biopsy Clinical History: Spider bite, rule out malignancy. FINAL DIAGNOSIS: Skin, left ankle lesion, excision: - Parakeratotic inflammatory crust, ulceration, marked acute inflammation, and necrosis. - No evidence of malignancy is identified. Gross Description: Received in formalin, labeled with a patient label and as left ankle, is a 0.7 x 0.5 cm irregular, crusted jaramillo-brown epithelial tissue excised to 0.2 cm. The specimen is inked, trisected, and entirely submitted in cassette 1. Gross examination (when applicable), interpretation, and sign out were performed at [facility], [address] [facility], [place] [address]. Electronically Signed Out ZEINAB BENNETT MD [facility] 06/10/2025 06/11/2025 1:5 5 PM CDT Comment:Skin, left ankle, bi opsy us Barrett Forbes MD PATHOLOGY/CYTOLOGY ORDERABLES nal Result [facility] [address] [place] [address], [place] [phone] [id number] from Last 3 Months Insurance [employer] Care Teams Lead Fabricator Relationship Specialty Start Date End Date None, Provider, PCP - General UNKNOWN PHYSICIAN SPECIALTY 05/29/25
[2025-06-22 09:07] LABS: Hematocrit 28.1 % (37.0-47.0); Hemoglobin 8.4 g/dL (12.0-15.0); Mean Corpuscular HGB Conc 29.9 g/dl (32-36); Mean Corpuscular Hemoglobin 30.8 pg (26-34); Mean Corpuscular Volume 102.9 fl (80-100); Platelet Count Result 174 k/mm3 (150-375); Red Blood Count 2.73 M/mm3 (4.2-5.4); White Blood Count 4.6 K/mm3 (4.5-10.0)
[2025-06-22 09:17] LABS: Alanine Aminotransferase 26 U/L (6-35); Albumin Level 3.9 g/dL (3.5-5.1); Alkaline Phosphatase 155 U/L (38-126); Anion Gap 7 mmol/L (4-12); Aspartate Amino Transferase 50 U/L (14-36); Bilirubin,Total 1.6 mg/dL (0.2-1.3); Blood Urea Nitrogen 17 mg/dL (7-17); Calcium 8.7 mg/dL (8.4-10.2); Carbon Dioxide 24 mmol/L (22-30); Chloride 111 mmol/L (98-107); Cholesterol 120 mg/dL (0-200); Estimated Glomerular Filt Rate 55; Glucose 105 mg/dL (65-110); HDL Direct 43 mg/dL; Potassium 4.0 mmol/L (3.4-5.0); Sodium 142 mmol/L (137-145); Total Protein 7.2 g/dL (6.3-8.2); Triglycerides 91 mg/dL (<150)
[2025-06-22 09:31] LABS: Add Urine Microscopic? YES; Appearance Urine Clear (Clear); Glucose Urine UA Negative (Negative); Leukocyte Esterase Ur Trace LEU/UL (Negative); Nitrate Urine Negative (Negative); Non Pathogenic Casts 0-2; Specific Grav Ur 1.016 (1.001-1.035)
[2025-06-22 09:47] LABS: Thyroid Stimulating Hormone 2.910 uIU/mL (0.465-4.680)
== END 2025-06-22 08:33 | disposition home or self-care (01) ==
PROVIDERS: PCP Family Medicine; Visit Provider Family Medicine
DX: K70.30 Alcoholic cirrhosis of liver without ascites (principal); N18.30 Chronic kidney disease, stage 3 unspecified; Z00.00 Encounter for general adult medical examination without abnormal findings; E78.5 Hyperlipidemia, unspecified; R53.83 Other fatigue
CPT/HCPCS: 36415; 80053; 80061; 81001; 84443; 85027